=== PATIENT | female | born 1945 | race African-American/Black ===

== ENCOUNTER 2018-07-03 21:22 | Emergency (ER) | payer MEDICARE, BC ==
[~2018-07-03] VITALS: Ht 165.1 cm; Wt 104.8 kg
[~2018-07-03 21:22] MED LIST: AMLODIPINE BESY10 MG PO; ASPIRIN81 MG PO; CALCIUM 600 MG1 EAC2 PO; CARDURA8 MG PO; COUMADIN10 MG PO; DOXAZOSIN MESYLA8 MG PO; FUROSEMIDE40 MG PO; HYDRALAZINE HC100 MG PO; ISOSORBIDE MONO30 MG PO; LEVOTHYROXINE137 MCG PO; METOPROLOL SUCC50 MG PO; OMEGA 3 FISH O1 EACH PO; OS-CAL 500+D T1 EACH PO; Z FISH OIL PO; Z LEVOTHROID PO; Z.0.CARDURA8 MG PO; Z.0.HYDRALAZINE HC10 PO; Z.0.LASIX40 MG PO; Z.0.TOPROL XL100 MG PO
[2018-07-03] MEDS ORDERED: LIDOCAINE HCL 1% LOCAL INJ 20 ML VIAL INJ ONE (22:15)
[2018-07-03] MEDS ORDERED: BUPIVACAINE HCL 0.25% 10ML MPF VIAL INJ ONE (22:45)
[2018-07-04 00:06] VITALS: BP 140/76
== END 2018-07-04 00:23 | disposition home or self-care (01) ==
LOC: ER 21:22
DX: S61.011A Laceration without foreign body of right thumb without damage to nail, initial encounter (principal); W26.8XXA Contact with other sharp object(s), not elsewhere classified, initial encounter; Y92.008 Other place in unspecified non-institutional (private) residence as the place of occurrence of the external cause; I10 Essential (primary) hypertension; I50.9 Heart failure, unspecified; N18.9 Chronic kidney disease, unspecified; I25.10 Atherosclerotic heart disease of native coronary artery without angina pectoris; Z86.711 Personal history of pulmonary embolism
CPT/HCPCS: 99283

== ENCOUNTER 2020-01-26 22:47 | Inpatient (IN) | payer MEDICARE, BC, OTHER ==
[~2020-01-26] VITALS: Ht 162.6 cm; Wt 110.7 kg
--- NOTE | 2020-01-26 23:05 | NUR ---
PT IN ER RM 9 AT THIS TIME. PT PLACED ON BEDSIDE DRY CELL SEALER. NO ACUTE DISTRESS NOTED AT THIS TIME. BED IS LOCKED AND IN LOWEST POSITION. HEAD OF THE BED IS ELEVATED AND GIVEN A BLANKET. X1 SIDE RAIL IS UP. CALL LIGHT IS IN REACH IF IN NEED FOR ASSISTANCE.
[2020-01-26 23:07] LABS: BASOPHILS # (AUTO) 0.1 (0.0-0.1); EOSINOPHILS # (AUTO) 0.3 (0.0-0.4); EOSINOPHILS % 6.3 % (0.0-6.0); HEMATOCRIT 44.7 % (34.2-44.1); HEMOGLOBIN 14.1 g/dL (12.0-16.0); LYMPHOCYTES # (AUTO) 1.1 (1.0-3.2); LYMPHOCYTES % 21.4 % (18.0-39.1); MEAN CORPUSCULAR HEMOGLOBIN 26.9 pg (28-32); MEAN CORPUSCULAR HGB CONC 31.5 g/dL (31-35); MEAN CORPUSCULAR VOLUME 85.3 fL (81-99); MONOCYTES # (AUTO) 0.7 (0.2-0.8); MONOCYTES % 14.5 % (4.4-11.3); NEUTROPHILS # (AUTO) 2.9 (2.1-6.9); NEUTROPHILS % 56.6 % (38.7-80.0); PLATELET COUNT 270 x10e3/uL (140-360); RED BLOOD COUNT 5.24 x10e6/uL (3.6-5.1); RED CELL DISTRIBUTION WIDTH 13.7 % (11.7-14.4)
--- NOTE | 2020-01-26 23:45 | Diagnostic Imaging Report ---
Examination: Single AP view of the chest. COMPARISON: None available in PACS at this time. INDICATION: Cough. Shortness of breath. DISCUSSION: Lines/tubes: None. Lungs: Mild bilateral pulmonary venous congestion. Bibasilar subsegmental atelectasis with mild elevation of the right hemidiaphragm. Pleura: There is no pleural effusion or pneumothorax. Heart and mediastinum: The cardiac silhouette is mildly enlarged. Thoracic aorta is tortuous and unfolded. Bones and soft tissues: No acute bony abnormalities. Degenerative changes in the thoracic spine. IMPRESSION: 1. Mild bilateral pulmonary venous congestion. Signed by: Dr. Merry Stephen M.D. on 01/26/2020 11:42 PM
[2020-01-26 23:46] LABS: ALBUMIN 3.8 g/dL (3.5-5.0); ALBUMIN/GLOBULIN RATIO 0.9 (0.8-2.0); ANION GAP 11.6 mmol/L (8-16); CREATININE, SERUM 2.54 mg/dL (0.57-1.11); POTASSIUM 3.6 mmol/L (3.5-5.1)
[2020-01-26 23:52] LABS: CREATINE KINASE MB 6.7 ng/mL (0-5.0)
[2020-01-27] VITALS (9 sets, daily range): BP systolic 126–167; BP diastolic 72–100
[2020-01-27] MEDS ORDERED: HYDRALAZINE HCL 20 MG/ML VIAL IV ONE
--- NOTE | 2020-01-27 00:02 | NUR ---
ADORE ARTEAGA NOTIFIED AND AWARE OF CRITICAL LAB VALUE, CALCIUM 15.8.
[2020-01-27 00:03] LABS: CALCIUM 15.8 mg/dL (8.4-10.2)
--- NOTE | 2020-01-27 00:14 | Diagnostic Imaging Report ---
CT BRAIN WO HISTORY: Headache COMPARISON: None. Technique: Noncontrast axial scans were obtained from skull base to the vertex. Coronal and sagittal reconstructions obtained from the axial data. One or more of the following dose reduction techniques were used: Automated exposure control, adjustment of the mA and/or kV according to patient size, and/or utilization of iterative reconstruction technique. DISCUSSION: Scalp/Skull: Unremarkable. Brain sulci: Mildly prominent. Ventricles: Compensatory dilatation. Extra-axial spaces: A few subcentimeter nodular fat deposits (or lipomas) along the upper falx due to not exert significant mass effect. Otherwise, no masses or fluid collections. Parenchyma: Mild bilateral deep white matter hypodensity is likely chronic microvascular ischemic change. Otherwise, no masses, hemorrhage, or large vascular territory acute infarct. Dural sinuses: No abnormal densities. Sellar/Suprasellar region: Intact. Skull base: Intact. Incidental findings: Mild right frontonasal recess and right ethmoid air cell mucosal thickening. Bilateral ocular lens replacement. IMPRESSION: 1. No acute intracranial abnormalities. 2. Mild supratentorial chronic microvascular ischemic change. Mild generalized cerebral volume loss. Signed by: Dr. Dereck Noe M.D. on 01/27/2020 12:10 AM
[2020-01-27] MEDS ORDERED: ASPIRIN 81 MG CHEW TAB PO ONE (00:30)
--- OUTSIDE RECORDS SUMMARY | 2020-01-27 00:32 | XMS REPORT ---
Author Author [facility] Address Unknown Phone Unavailable Care Team Providers Care Vice President Financial Name Role Phone RICHARD LONNY Unavailable Unavailable Problems This patient has no known problems. Allergies, Adverse Reactions, Alerts This patient has no known allergies or adverse reactions. Medications This patient has no known medications. Results Test Description Test Time Test Comments Text Results Atomic Results Result Comments CT BRAIN WO 2020-01-27 00:06:00 [place] [address] Patient Name: ANAMIKA MCNEILL MR #: [id number] : 1945 Age/Sex: 74/F Req #: [id number] Adm Physician: Ordered by: LONNY RAMOS DO Report #: [id number] Location: ER Room/Bed: Procedure: [id number] CT/CT BRAIN WO Exam Date: Exam Time: REPORT STATUS: Signed CT BRAIN WO HISTORY: Headache COMPARISON: None. Technique: Noncontrast axial scans were obtained from skull base to the vertex. Coronal and sagittal reconstructions obtained from the axial data. One or more of the following dose reduction techniques were used: Automated exposure control, adjustment of the mA and/or kV according to patient size, and/or utilization of iterative reconstruction technique. DISCUSSION: Scalp/Skull: Unremarkable. Brain sulci: Mildly prominent. Ventricles: Compensatory dilatation. Extra-axial spaces: A few subcentimeter nodular fat deposits (or lipomas) along the upper falx due to not exert significant mass effect. Otherwise, no masses or fluid collections. Parenchyma: Mild bilateral deep white matter hypodensity is likely chronic microvascular ischemic change. Otherwise, no masses, hemorrhage, or large vascular territory acute infarct. Dural sinuses: No abnormal densities. Sellar/Suprasellar region: Intact. Skull base: Intact. Incidental findings: Mild right frontonasal recess and right ethmoid air cell mucosal thickening. Bilateral ocular lens replacement. IMPRESSION: 1. No acute intracranial abnormalities. 2. Mild supratentorial chronic microvascular ischemic change. Mild generalized cerebral volume loss. Signed by: Dr. Dereck Noe M.D. on 01/27/2020 12:10 AM Dictated By: DERECK NOE MD Transcribed By: MELONY on 01/27/209 COPY TO: LONNY RAMOS DO CHEST SINGLE (PORTABLE) 2020-01-26 23:40:00 [place] [address] Patient Name: ANAMIKA MCNEILL MR #: [id number] : 1945 Age/Sex: 74/F Req #: [id number] Adm Physician: Ordered by: LONNY RAMOS DO Report #: [id number] Location: ER Room/Bed: Procedure: [id number] DX/CHEST SINGLE (PORTABLE) Exam Date: 01/26/20 Exam Time: 2329 REPORT STATUS: Signed Examination: Single AP view of the chest. COMPAR JUAN R: None available in PACS at this time. INDICATION: Cough. Shortness of breath. DISCUSSION: Lines/tubes: None. Lungs: Mild bilateral pulmonary venous congestion. Bibasilar subsegmental atelectasis with mild elevation of the right hemidiaphragm. Pleura: There is no pleural effusion or pneumothorax. Heart and mediastinum: The cardiac silhouette is mildly enlarged. Thoracic aorta is tortuous and unfolded. Bones and soft tissues: No acute bony abnormalities. Degenerative changes in the thoracic spine. IMPRESSION: 1. Mild bilateral pulmonary venous congestion. Signed by: Dr. Merry Guzman M.D. on 01/26/2020 11:42 PM Dictated By: BEATA GUZMAN MD, MD 41 Transcribed By: MELONY on 01/26/202341 COPY TO: LONNY RAMSO DO
--- NOTE | 2020-01-27 00:57 | NUR ---
Received patient from ER via stretcher. AAox3. Able yo make needs known. Lt Ac 20g intact. Patient c/o SOB. O2 Sats 94%. Patient assisted to bed. HOB elevated 45 degrees. Denies any pain/discomfort at this time. Call light in reach. Bed in low and locked postion. Orientated to room and call light. Will cont to monitor.
[2020-01-27] MEDS: SODIUM CHLORIDE 0.9% 1000ML 1,000 ML IV SCH ×4 (03:04→23:54)
[2020-01-27] MEDS: HYDRALAZINE HCL 20 MG/ML VIAL IV PRN (04:47)
--- NOTE | 2020-01-27 04:52 | NUR ---
Patient blood pressure 162/100. Apresoline 10mg 0.5ml given IV. Patient denies any c/o headache or SOB. Will cont to monitor.
--- NOTE | 2020-01-27 05:30 | NUR ---
Rechecked patient blood pressure after Apresoline IV. 135/83, 76.
[2020-01-27] MEDS ORDERED: CARVEDILOL12.5 MG PO (05:47)
[2020-01-27] MEDS ORDERED: AMLODIPINE BESY10 MG PO (05:47)
[2020-01-27] MEDS ORDERED: LOSARTAN POTAS100 MG PO (05:47)
[2020-01-27] MEDS ORDERED: HYDROCHLOROTHIA25 MG (05:47)
[2020-01-27 07:32] LABS: CREATINE KINASE MB 9.5 ng/mL (0-5.0)
[2020-01-27] MEDS ORDERED: FUROSEMIDE INJ 10 MG/ML 4 ML VIAL IV SCH (09:00)
[2020-01-27] MEDS: METOPROLOL TARTRATE 25 MG TAB PO SCH ×2 (11:00→17:32)
--- NOTE | 2020-01-27 11:15 | Consultation ---
DATE OF CONSULTATION: Cardiology Consultation REASON FOR CONSULTATION: Chest pain. HISTORY OF PRESENT ILLNESS: Ms. Storm is a 74-year-old female with a pertinent past medical history of chronic diastolic heart failure, chronic kidney disease, coronary artery disease, and high blood pressure. She reports that she came into the ER due to ongoing chest pain for the last week. She reports that the chest pains are substernal and at times are relieved after she has a bowel movement, however, it seems to be bothering her more consistently over the last week and for that reason, she came into the ER. She does report she has a loaders by the name of Dr. Santos, whom she saw about two months ago in November 2019 and had a Holter monitor for three days. The reason the Holter monitor was ordered is due to concerns of arrhythmia. She reports that after wearing it, she was told everything was well. She reports her last cardiac evaluation was many years ago in 2013 when she last had a stress test. She is unable to walk on a treadmill and she does endorse some shortness of breath with exertion. She denies chest pain at this minute, but reports it was there around 2 o'clock this morning. Denies fever, chills, abdominal discomfort, dysuria, edema, orthopnea, or PND. REVIEW OF SYSTEMS: Negative except as mentioned above. PAST MEDICAL HISTORY: As listed above. PAST SURGICAL HISTORY: Bunionectomy, tubal ligation, and thyroidectomy secondary to goiter. PHYSICAL EXAMINATION: VITAL SIGNS: Temperature 96.6, pulse 71, respiratory rate 18, blood pressure 138/88, and oxygen saturation 96% on 1 liter nasal cannula. GENERAL: Alert and oriented x3. Resting comfortably in bed. Does not appear to be in any acute distress. NECK: Supple. No JVD noted. LUNGS: Clear to auscultation throughout. No wheezing. No rhonchi or crackles. CARDIOVASCULAR: Irregular rate and rhythm, 2/6 diastolic murmur present. No gallops. ABDOMEN: Soft and nontender. Normoactive bowel sounds. EXTREMITIES: Lower extremity, 2+ pedal pulses. No edema. CARDIOVASCULAR MEDICATIONS: Lasix 40 mg every 12 hours IV. LABORATORY DATA: On admission, WBC 5.10, hemoglobin 14.1, hematocrit 44.7, and platelets 270. Sodium 141, potassium 3.6, BUN 25, creatinine 2.54, creatine kinase 249, CK-MB 9.50, and troponin 0.075. IMAGING: Chest x-ray on admission with mild pulmonary vascular congestion. CT scan of the brain with no acute intracranial abnormality. TELEMETRY: Sinus rhythm with first-degree AV block and occasional PACs. IMPRESSION: 1. Chronic kidney disease. 2. Atypical chest pain. 3. Constipation. 4. Diastolic heart failure. 5. Hypertension. RECOMMENDATIONS: Echocardiogram ordered to be obtained this morning. We will review recommendations and we will follow. Plan for ischemic evaluation will require Lexiscan stress test during admission. Continue to monitor cardiac enzymes at this time. Medications adjusted accordingly. Maintain on telemetry at all times. We will continue to monitor this patient very closely. We thank you for this consultation and allowing us to participate in this patient's care. Dictated by Lia Curran NP MD YANETH HaasV/MICHAEL /[id number]
[2020-01-27 15:12] LABS: CREATINE KINASE MB 10.9 ng/mL (0-5.0)
[2020-01-27] MEDS ORDERED: MELATONIN 5 MG TABLET PO PRN (18:45)
[2020-01-27] MEDS ORDERED: HYDROCODONE/APAP 5MG-325MG TAB PO PRN (18:45)
[2020-01-27 18:52] LABS: BASOPHILS % 0.8 % (0.0-1.0); EOSINOPHILS # (AUTO) 0.2 (0.0-0.4); EOSINOPHILS % 4.9 % (0.0-6.0); HEMATOCRIT 45.3 % (34.2-44.1); HEMOGLOBIN 14.4 g/dL (12.0-16.0); LYMPHOCYTES # (AUTO) 1.1 (1.0-3.2); LYMPHOCYTES % 22.5 % (18.0-39.1); MEAN CORPUSCULAR HGB CONC 31.8 g/dL (31-35); MONOCYTES # (AUTO) 0.7 (0.2-0.8); MONOCYTES % 14.4 % (4.4-11.3); NEUTROPHILS # (AUTO) 2.8 (2.1-6.9); NEUTROPHILS % 57.4 % (38.7-80.0); PLATELET COUNT 284 x10e3/uL (140-360); RED BLOOD COUNT 5.33 x10e6/uL (3.6-5.1); RED CELL DISTRIBUTION WIDTH 14.2 % (11.7-14.4)
[2020-01-27 19:13] LABS: ANION GAP 14.4 mmol/L (8-16); CREATININE, SERUM 2.44 mg/dL (0.57-1.11); POTASSIUM 3.4 mmol/L (3.5-5.1)
[2020-01-27 19:17] LABS: CALCIUM 14.6 mg/dL (8.4-10.2)
--- NOTE | 2020-01-27 19:32 | NUR ---
CALLED AND NOTIFIED DR. GOSS OF PATIENT'S CALCIUM LEVEL OF 14.6 AND POTASSIUM 3.4 STATES HE IS AWARE AND IN THE CHART NOW.
[2020-01-27] MEDS ORDERED: POTASSIUM CHLORIDE 20 MEQ TAB CR PO NR (19:45)
--- NOTE | 2020-01-27 20:57 | History and Physical ---
CHIEF COMPLAINT: Shortness of breath, generalized weakness, and fatigue. HISTORY OF PRESENT ILLNESS: This is a 74-year-old female with history of hypertension and hypothyroidism, presents to the ED with complaints underlying chest pain and shortness of breath. The patient reports that her blood pressure was very elevated at home as well and was recently changed her medications by her plan nurse. She also reports having some chest pressure substernally with no radiation. She reports that she has no associated nausea or vomiting. Recently had a cardiac stress test in [place] by Dr. Santos, but she does not know the results. She reports she saw him back in December 2019, reports everything was well with no issues. She currently denies any chest pain during my interview. While on admission, she was found to have an elevated calcium level greater than 15, in which she does take hydrochlorothiazide as well as calcium twice a day at home for unknown reasons. The patient is a very poor historian. The patient is seen and evaluated at bedside on the medical floor. She is currently doing well with no other issues at this time. REVIEW OF SYSTEMS: Pertinent positives: Chest pain, palpitations, and generalized weakness. The rest of 14-point review of systems are reviewed with the patient and are negative. ALLERGIES: IODINE CONTRAST AND IBUPROFEN. HOME MEDICATIONS: Amlodipine, Coreg, hydrochlorothiazide, losartan, calcium carbonate with vitamin D3, aspirin, and levothyroxine. PAST MEDICAL HISTORY: Hypothyroidism and hypertension, uncontrolled. PAST SURGICAL HISTORY: Reports none. FAMILY HISTORY: Hypertension and diabetes. SOCIAL HISTORY: No drugs, no alcohol, does not smoke. She has children. PHYSICAL EXAMINATION: VITAL SIGNS: Temperature is 97.2, pulse 65, respiratory rate is 20, blood pressure is 141/89, and pulse ox 97% on room air. GENERAL: In no acute distress. Alert and oriented x3. Cooperative on examination. HEENT: Head is normocephalic and atraumatic. Eyes; pupils are equal, round, and reactive to light bilaterally. Extraocular movements are intact bilaterally. Throat; no evidence of erythema or exudates in the posterior pharynx. Has poor dentition. NECK: Supple. Good range of motion. PULMONARY: Clear to auscultation bilaterally. No wheezing, rales, or rhonchi. No crackles appreciated. CARDIOVASCULAR: Positive S1 and S2. No murmurs, rubs, or gallops appreciated. ABDOMEN: Soft, nondistended, and nontender to palpation. Bowel sounds present. MUSCULOSKELETAL: Strength is 5/5 throughout. No evidence of any muscle deficits on examination. No weakness appreciated. NEUROLOGIC: Cranial nerves 2 through 12 grossly intact. No evidence of any neurological deficits on exam. SKIN: Intact. Warm to touch. Good cap refill. PSYCHIATRIC: Normal affect and mood. EXTREMITIES: No edema. Good range of motion. LABORATORY DATA: White count 4.9, hemoglobin 14, hematocrit 45, and platelets of 284. Chemistry; sodium 140, potassium 3.4, chloride 92, bicarb 37, anion gap of 14, BUN is 27, creatinine is 2.44, glucose is 121, calcium on admission 15.8 downtrended to 14.6. Her total bilirubin is 0.6, AST 31, ALT 24, and alk phos 63. CK down trending to , CK-MB was elevated at 7.9. Troponins are 0.078, 0.075 and 0.122. BNP 36, total protein 8.2, albumin 3.8. Microbiology none. IMAGING STUDIES: Chest x-ray with mild pulmonary bilateral venous congestion. CT of the brain, no acute intracranial abnormality. IMPRESSION: 1. Chest pain, likely atypical in nature. 2. Acute kidney injury, likely secondary to dehydration. 3. Hypercalcemia, presumed to be multifactorial from vitamin D and calcium supplements, hydrochlorothiazide as well as dehydration. 4. Hypothyroidism. 5. Electrolyte abnormalities. PLAN: At this time her cardiac enzymes are negative. We will trend the troponins. Cardiology was consulted. Scheduled for cardiac stress testing. Replace potassium. As for calcium, it seems to be multifactorial, it is all likely secondary to home calcium and vitamin D including hydrochlorothiazide and dehydration. At this time, we will continue with IV fluid hydration at 125 mL/h of normal saline. Repeat labs in the morning. I did order intact PTH, ionized calcium, and chemistries as well to monitor this closely. In the event of her intact PTH level is high, I will go ahead and get a Sestamibi scan, but at this time we will continue to determine that once the further testing and lab results are present. We are going to resume same home medications except for the hydrochlorothiazide as well as her calcium and vitamin D. She also has underlying acute kidney injury it seems, but no chronic, I am not sure as the patient is very poor historian. We will continue to monitor renal function. Get a.m. labs. Discussed plan of care with the patient, nursing staff, and patient's son at bedside. MD MANAN Hart/MICHAEL /[id number]
[2020-01-28] VITALS (11 sets, daily range): BP systolic 142–163; BP diastolic 69–105
[2020-01-28 05:30] LABS: BASOPHILS % 0.7 % (0.0-1.0); EOSINOPHILS # (AUTO) 0.3 (0.0-0.4); EOSINOPHILS % 5.9 % (0.0-6.0); HEMATOCRIT 42.8 % (34.2-44.1); HEMOGLOBIN 13.3 g/dL (12.0-16.0); LYMPHOCYTES # (AUTO) 1.5 (1.0-3.2); LYMPHOCYTES % 26.1 % (18.0-39.1); MEAN CORPUSCULAR HEMOGLOBIN 26.8 pg (28-32); MEAN CORPUSCULAR HGB CONC 31.1 g/dL (31-35); MEAN CORPUSCULAR VOLUME 86.3 fL (81-99); MONOCYTES # (AUTO) 0.9 (0.2-0.8); MONOCYTES % 16.4 % (4.4-11.3); NEUTROPHILS # (AUTO) 2.8 (2.1-6.9); NEUTROPHILS % 50.7 % (38.7-80.0); PLATELET COUNT 256 x10e3/uL (140-360); RED BLOOD COUNT 4.96 x10e6/uL (3.6-5.1); RED CELL DISTRIBUTION WIDTH 14.3 % (11.7-14.4)
[2020-01-28 05:42] LABS: ALBUMIN 3.5 g/dL (3.5-5.0); ALBUMIN/GLOBULIN RATIO 0.9 (0.8-2.0); ANION GAP 11.7 mmol/L (8-16); CREATININE, SERUM 2.33 mg/dL (0.57-1.11); POTASSIUM 3.7 mmol/L (3.5-5.1)
[2020-01-28 05:47] LABS: CALCIUM 13.4 mg/dL (8.4-10.2)
[2020-01-28] MEDS: LEVOTHYROXINE SODIUM 112 MCG TAB PO SCH (06:43)
[2020-01-28] MEDS: ASPIRIN 81 MG CHEW TAB PO SCH (08:22)
[2020-01-28] MEDS: METOPROLOL TARTRATE 25 MG TAB PO SCH ×2 (08:22→17:57)
[2020-01-28] MEDS ORDERED: ASPIRIN 325 MG TAB PO SCH (09:00)
--- NOTE | 2020-01-28 10:20 | NUR ---
Pt unavailable at this time. EVS cleaning pt's room. I will follow up as able. IDALIA MORRISON [employer] Specialist Spiritual Care Department O: [phone]
--- NOTE | 2020-01-28 11:00 | NUR ---
MARCELA CANCELLED DUE TO PT HAVING ONE IN [place]
--- NOTE | 2020-01-28 12:11 | NUR ---
FROM DR TSANG STANDPOINT PT CAN BE DC.
--- NOTE | 2020-01-28 12:23 | NUR ---
discontinuing PT services since patient is Mod I in functional mobility.Thank you Addendum: 01/28/20 at 1223 by Jayme perea PT Amended: Links added.
[2020-01-28] MEDS: SODIUM CHLORIDE 0.9% 1000ML 1,000 ML IV SCH ×2 (12:25→20:41)
--- NOTE | 2020-01-28 12:25 | NUR ---
DR GOSS IS HERE AND PT WILL CONTINUE ON THE IV FLUIDS AT 125 TO GET THE CALCIUM LEVEL DOWN
--- NOTE | 2020-01-28 12:40 | Progress Note ---
DATE: Cardiology Progress Note SUBJECTIVE: The patient feels better. Denies any chest pain or shortness of breath. OBJECTIVE: VITAL SIGNS: Temperature is 98, heart rate 60, respirations are 20, blood pressure is 155/69, and oxygen saturation is 95% on room air. GENERAL: Well appearing, in no apparent distress. CARDIOVASCULAR: Regular rate and rhythm. LUNGS: Clear to auscultation. ABDOMEN: Soft, nontender, and nondistended. EXTREMITIES: No clubbing, cyanosis, or edema. NEUROLOGIC: No focal deficits noted. MEDICATIONS: Reviewed. LABORATORY DATA: Reviewed. Creatinine is 2.3. Calcium is 13.4. Telemetry monitoring revealed normal sinus rhythm. Stress test in October of 2019, shows normal myocardial perfusion. IMPRESSION: 1. Chronic kidney disease. 2. Atypical chest pain. 3. Constipation. 4. Diastolic heart failure. 5. Hypertension. RECOMMENDATIONS: Her echocardiogram showed normal left ventricular systolic function. The patient follows with a nursing program coordinator, Dr. Santso, who performed echocardiogram and nuclear stress test in October 2019, which were within normal limits. Titrate antihypertensives. The patient may be discharged from a cardiovascular standpoint with outpatient followup with her primary nursing program coordinator. DO GENARO Contreras/MICHAEL /[id number]
--- NOTE | 2020-01-28 13:25 | NUR ---
INPT ORDERS IMM EXPLAINED TO PT, SIGNED BY PT AND PLACED ON CHART COPY OF IMM GIVEN TO PT IN CARE TRANSITIONS FOLDER
--- NOTE | 2020-01-28 15:05 | Progress Note ---
DATE: 01/28/2020 Medicine Progress Note SUBJECTIVE: The patient is doing well today with no complaints. I did review the patient's 2D echo. Cardiac stress testing performed in November of 2019, found to be normal. Cardiology reviewed and stated that no further workup is needed. PHYSICAL EXAMINATION: VITAL SIGNS: Temperature is 98, pulse is 60, respiratory rate is 20, blood pressure 155/69, and pulse ox 95% on room air. GENERAL: No acute distress. Alert and oriented x3. Cooperative on examination. HEENT: Head, normocephalic and atraumatic. Eyes, pupils are equal, round, and reactive to light bilaterally. Extraocular movements are intact bilaterally. NECK: Supple. Good range of motion throughout. Throat, no evidence of erythema or exudates in the posterior pharynx. Has poor dentition. PULMONARY: Clear to auscultation bilaterally. No wheezing, rales, or rhonchi. No crackles appreciated. CARDIOVASCULAR: Positive S1 and S2. No murmurs, rubs, or gallops appreciated. ABDOMEN: Soft, nondistended, and nontender to palpation. Bowel sounds present. MUSCULOSKELETAL: Strength is 5/5 throughout. No evidence of any muscle deficits on examination. No weakness appreciated. NEUROLOGIC: Cranial nerves II through XII grossly intact. No evidence of any neurological deficits on exam. SKIN: Intact. Warm to touch. Good cap refill. PSYCHIATRIC: Normal affect and mood. EXTREMITIES: No edema. Good range of motion throughout. LABORATORY DATA: Show white count 5.5, hemoglobin 13, hematocrit 43, and platelets of 256. Chemistry; sodium 140, potassium 3.7, chloride 96, bicarb 36, anion gap of 11, BUN is 27, creatinine is 2.33 downtrending, calcium is 13.4, ionized calcium was 1.7 elevated. Vitamin D level, intact PTH still pending. IMAGING STUDIES: Nothing new. IMPRESSION: 1. Chest pain, likely atypical in nature-normal cardiac stress testing and 2D echo in November 2019 by her outpatient maxillofacial surgeon. No further workup needed. 2. Acute kidney injury secondary to dehydration. 3. Hypercalcemia, multifactorial from vitamin D and calcium supplements, hydrochlorothiazide and dehydration. 4. Hypothyroidism. 5. Electrolyte abnormalities. PLAN: At this time, no further cardiac workup needed with normal stress testing and 2D echo. Cardiology is following. Her renal function is improving with IV fluid hydration as well as her calcium. Continue with aggressive IV fluid hydration for now. Still pending several lab tests, vitamin D level as well as intact PTH levels. Get a.m. labs. MD MANAN Hart/MODDebbie /[id number]
--- NOTE | 2020-01-28 16:40 | NUR ---
pt resting quietly no signs of discomfort.
--- NOTE | 2020-01-28 19:00 | NUR ---
RECEIVED PATIENT IN BEDSIDE SHIFT REPORT. PATIENT A&OX3. NO PAIN REPORTED. NO S&S OF DISTRESS NOTED. IV TO L AC 20G RUNNING NS @ 125ML/HR, ASYMPTOMATIC, INTACT, AND PATENT. BED LOCKED IN LOWEST POSITION, SIDE RAILS UPX2, CALL LIGHT IN REACH.
[2020-01-29] VITALS (7 sets, daily range): BP systolic 143–174; BP diastolic 79–104
[2020-01-29 05:08] LABS: BASOPHILS % 0.7 % (0.0-1.0); EOSINOPHILS # (AUTO) 0.3 (0.0-0.4); EOSINOPHILS % 5.2 % (0.0-6.0); HEMATOCRIT 39.8 % (34.2-44.1); HEMOGLOBIN 12.2 g/dL (12.0-16.0); LYMPHOCYTES # (AUTO) 1.1 (1.0-3.2); LYMPHOCYTES % 18.3 % (18.0-39.1); MEAN CORPUSCULAR HEMOGLOBIN 26.8 pg (28-32); MEAN CORPUSCULAR HGB CONC 30.7 g/dL (31-35); MEAN CORPUSCULAR VOLUME 87.5 fL (81-99); MONOCYTES # (AUTO) 0.8 (0.2-0.8); MONOCYTES % 13.8 % (4.4-11.3); NEUTROPHILS # (AUTO) 3.7 (2.1-6.9); NEUTROPHILS % 61.8 % (38.7-80.0); PLATELET COUNT 230 x10e3/uL (140-360); RED BLOOD COUNT 4.55 x10e6/uL (3.6-5.1); RED CELL DISTRIBUTION WIDTH 14.1 % (11.7-14.4)
[2020-01-29 05:23] LABS: ANION GAP 10.6 mmol/L (8-16); CALCIUM 11.9 mg/dL (8.4-10.2); CREATININE, SERUM 2.08 mg/dL (0.57-1.11); POTASSIUM 3.6 mmol/L (3.5-5.1)
[2020-01-29] MEDS: SODIUM CHLORIDE 0.9% 1000ML 1,000 ML IV SCH ×2 (05:38→16:17)
[2020-01-29] MEDS: LEVOTHYROXINE SODIUM 112 MCG TAB PO SCH (05:55)
[2020-01-29] MEDS: ASPIRIN 81 MG CHEW TAB PO SCH (08:54)
[2020-01-29] MEDS: METOPROLOL TARTRATE 25 MG TAB PO SCH ×2 (08:56→16:32)
--- NOTE | 2020-01-29 11:49 | Progress Note ---
DATE: 01/29/2020 Medicine Progress Note SUBJECTIVE: The patient reports doing much better today with no complaints. No overnight events. PHYSICAL EXAMINATION: VITAL SIGNS: Temperature is 97.4, pulse 56, respiratory rate is 20, blood pressure 159/88, pulse ox 99% on room air. LABORATORY FINDINGS: Show white count 5.9, hemoglobin 12, hematocrit 39, platelets of 230. Chemistry; sodium 141, potassium 3.6, chloride 101, bicarb 33, anion gap of 10, BUN is 26, creatinine is 2.08, glucose 114. Calcium improved to 11.9, down from 13.4. Parathyroid hormone was less than 10. IMAGING STUDIES: Nothing new. GENERAL: No acute distress. Alert, oriented x3. Cooperative on examination. HEENT: Head; normocephalic, atraumatic. Eyes; pupils are equal, round, and reactive to light bilaterally. Extraocular movements are intact bilaterally. Throat; no erythema or exudates in the posterior pharynx, has poor dentition. NECK: Supple. Good range of motion. PULMONARY: Clear to auscultation bilaterally. No wheezing, rales, or rhonchi. No crackles appreciated. CARDIOVASCULAR: Positive S1 and S2. No murmurs, rubs, or gallops. GI: Abdomen is soft, nondistended, and nontender to palpation. Bowel sounds present. MUSCULOSKELETAL: Strength is 5/5 throughout. No evidence of any muscle deficits on examination. No weakness appreciated. NEUROLOGIC: Cranial nerves II through XII grossly intact. No evidence of any neurological deficits on exam. SKIN: Intact. Warm to touch. Good cap refill. PSYCHIATRIC: Normal affect and mood. EXTREMITIES: No edema. Good range of motion throughout. IMPRESSION: 1. Chest pain, likely atypical in nature-had normal cardiac stress testing and 2D echo back in November 2019, by her outpatient particleboard factory worker. No further workup is needed. Our particleboard factory worker was consulted, recommended no further treatment. 2. Acute kidney injury secondary to dehydration. 3. Hypercalcemia, multifactorial from vitamin D and calcium supplements, including hydrochlorothiazide and dehydration. 4. Hypothyroidism. 5. Electrolyte abnormalities. PLAN: At this time, no further cardiac workup was needed. Cardiology was following. As for her calcium, we will continue with aggressive IV fluid hydration. Her calcium is down trending appropriately. Intact PTH, was less than 10, which is an appropriate response to hypercalcemia. Repeat labs in the morning. If her calcium downtrends and improves and possibly if the serum calcium is approximately in the 10s, tomorrow she can be discharged to home holding her hydrochlorothiazide and her vitamin D and calcium supplements and needs close followup with her PCP. MD MANAN Hart/MICHAEL /[id number]
--- NOTE | 2020-01-29 18:47 | NUR ---
Patient left AC IV infiltrated. Patient IV removed and covered with a dressing. Patient has a new 20g IV placed into the R hand. Will continue to monitor.
--- NOTE | 2020-01-29 19:00 | NUR ---
RECEIVED PATIENT IN BEDSIDE SHIFT REPORT. PATIENT RESTING IN BED AT THIS TIME, A&OX3. NO PAIN REPORTED. NO S&S OF DISTRESS NOTED. IV RUNNING NS @125ML/HR. O2 @2L PER PATIENT REQUEST D/T INTERMITTENT SOB. BED LOCKED IN LOWEST POSITION, SIDE RAILS UPX2, CALL LIGHT IN REACH.
[2020-01-29] MEDS: HYDRALAZINE HCL 20 MG/ML VIAL IV PRN (21:00)
[2020-01-30] VITALS (9 sets, daily range): BP systolic 155–176; BP diastolic 86–104
[2020-01-30 05:29] LABS: BASOPHILS # (AUTO) 0.1 (0.0-0.1); BASOPHILS % 0.8 % (0.0-1.0); EOSINOPHILS # (AUTO) 0.3 (0.0-0.4); EOSINOPHILS % 5.1 % (0.0-6.0); HEMATOCRIT 39.6 % (34.2-44.1); LYMPHOCYTES # (AUTO) 1.4 (1.0-3.2); LYMPHOCYTES % 22.5 % (18.0-39.1); MEAN CORPUSCULAR HEMOGLOBIN 26.6 pg (28-32); MEAN CORPUSCULAR HGB CONC 30.3 g/dL (31-35); MEAN CORPUSCULAR VOLUME 87.8 fL (81-99); MONOCYTES # (AUTO) 0.8 (0.2-0.8); MONOCYTES % 12.3 % (4.4-11.3); NEUTROPHILS # (AUTO) 3.6 (2.1-6.9); PLATELET COUNT 239 x10e3/uL (140-360); RED BLOOD COUNT 4.51 x10e6/uL (3.6-5.1); RED CELL DISTRIBUTION WIDTH 14.1 % (11.7-14.4)
[2020-01-30 05:55] LABS: CALCIUM 11.2 mg/dL (8.4-10.2); CREATININE, SERUM 1.73 mg/dL (0.57-1.11)
[2020-01-30] MEDS: LEVOTHYROXINE SODIUM 112 MCG TAB PO SCH (06:14)
[2020-01-30] MEDS: SODIUM CHLORIDE 0.9% 1000ML 1,000 ML IV SCH ×2 (06:14→08:16)
--- NOTE | 2020-01-30 07:00 | NUR ---
RECEIVED PATIENT RESTING IN BED NO S/S OF DISTRESS. BED LOW, WHEELS LOCKED, SIDE RAILS X2. CALL LIGHT IN REACH WILL CONTINUE TO MONITOR PATIENT.
[2020-01-30] MEDS: ASPIRIN 81 MG CHEW TAB PO SCH (08:40)
[2020-01-30] MEDS: METOPROLOL TARTRATE 25 MG TAB PO SCH ×2 (08:40→17:00)
--- NOTE | 2020-01-30 13:29 | Progress Note ---
DATE: 01/30/2020 Medicine Progress Note SUBJECTIVE: The patient reports being a little short of breath. I will stop IV fluids, give her some Lasix. Calcium is still 11.2. No other complaints. No overnight events. OBJECTIVE: VITAL SIGNS: Temperature is 98, pulse 80, respiratory rate is 18, blood pressure recorded at 173/97, pulse ox 96% on 2 L nasal cannula. GENERAL: No acute distress. Alert and oriented x3. Cooperative on examination. HEENT: Head; normocephalic, atraumatic. Eyes; pupils are equal, round, and reactive to light bilaterally. Extraocular movements are intact bilaterally. Throat; no erythema or exudates in the posterior pharynx, has poor dentition. NECK: Supple. Good range of motion. PULMONARY: Clear to auscultation bilaterally. No wheezing, rales, or rhonchi. No crackles appreciated. CARDIOVASCULAR: Positive S1, S2. No murmurs, rubs, or gallops. GI: Abdomen is soft, nondistended, and nontender to palpation. Bowel sounds present. MUSCULOSKELETAL: Strength is 5/5 throughout. No evidence of any muscle deficits on examination. No weakness appreciated. NEUROLOGIC: Cranial nerves II through XII grossly intact. No evidence of any neurological deficits on exam. SKIN: Intact. Warm to touch. Good cap refill. PSYCHIATRIC: Normal affect and mood. EXTREMITIES: No edema. Good range of motion throughout. LABORATORY FINDINGS: Show white count 6, hemoglobin 12, hematocrit 39.6, platelets about 239. Chemistry; sodium 144, potassium 4, chloride 104, bicarb 34, anion gap of 10, BUN is 22, creatinine is 1.73. Her calcium downtrended now to 11.2. IMPRESSION: 1. Chest pain, atypical in nature, had normal cardiac stress testing and 2D echo back in November 2019 by her outpatient electromedical equipment technician. Our electromedical equipment technician reports no further workup needed at this time. 2. Acute kidney injury secondary to dehydration - resolved. 3. Hypercalcemia, multifactorial from vitamin D, calcium supplements as well as hydrochlorothiazide, and dehydration. 4. Hypothyroidism. 5. Electrolyte abnormalities. PLAN: At this time, no further cardiac workup needed by Cardiology. I will go ahead and stop the IV fluids as she reports being short of breath. Get a stat chest x-ray. Lasix 40 mg IV x1. Repeat labs in the morning. Discussed plan of care with nursing staff. MD MANAN Hart/MICHAEL /[id number]
[2020-01-30] MEDS ORDERED: FUROSEMIDE INJ 10 MG/ML 4 ML VIAL IV ONE ×2 (13:45→19:00)
--- NOTE | 2020-01-30 13:59 | Diagnostic Imaging Report ---
Chest, 1 view, 01/30/2020. History: Shortness of breath. Comparison: 01/26/2020. Findings: There is poor inspiration. The cardiomediastinal silhouette and pulmonary vasculature are within normal limits for a portable exam. There is no focal consolidation or pleural effusion. There are no acute osseous or soft tissue abnormalities. Impression: No acute cardiopulmonary abnormality. Signed by: Dagoberto Huitron on 01/30/2020 1:56 PM
[2020-01-30] MEDS: HYDRALAZINE HCL 20 MG/ML VIAL IV PRN (15:34)
--- NOTE | 2020-01-30 21:27 | NUR ---
Pulmonary 142924 COVID (+) exposure Check COVID testing, follow clinically for evolving symptoms Thanks
--- NOTE | 2020-01-30 22:03 | Consultation ---
DATE OF CONSULTATION: 01/30/2020 Pulmonary Medicine Consult REASON FOR REFERRAL: Direct COVID contact. HISTORY: Ms. Storm is a pleasant 74-year-old female with contact with contagious virus. The patient admitted on January 28, 2020 with shortness of breath. The patient with additional generalized weakness. The patient was found to have multiple abnormalities, but importantly the patient reportedly had in December 2019 cardiac stress test, which she believes was unremarkable, but she is not sure. However, she then told grinder dresser that in 2013 was her last stress test, but she was unable to walk on treadmill at that time. While dealing with weakness, the patient encountered COVID positive contact. Of note, her admission chest x-ray with some right lower lobe atelectasis. Of note, the patient was beginning to develop a little bit more shortness of breath after initial improvement after day one. I am consulted. Currently, she is on 2 L/minute nasal cannula oxygen. She is still on IV fluids, but now only 50 mL/h that were placed due to hypercalcemia with level of 15.8 on admission. Her albumin in serum was 3.5, normal. Parathyroid hormone was low at 10 and TSH was normal. Creatinine is 2.54 on admit. I am consulted. The patient with no history of a home oxygen use. She is on no respiratory home medicines. PAST MEDICAL HISTORY: Hypothyroidism, hypertension, and obesity. MEDICATIONS: Medication list reviewed per the chart record, but include amlodipine, Coreg, hydrochlorothiazide, losartan, calcium carbonate with vitamin D, aspirin, and levothyroxine. SOCIAL HISTORY: No smoking. No drinking. No drugs. 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 FAMILY HISTORY: Noncontributory. REVIEW OF SYSTEMS: GENERAL: No weight loss. HEENT: No mouth ulcers. Ophthalmologic, no conjunctival ulcers. ENDOCRINE: No recent knowledge of any dysthymia. PULMONARY: No asthma. CARDIAC: No heart attack. GI: No constipation. : No blood in urine. PSYCHIATRIC: No depression. NEUROLOGIC: No seizures. OBJECTIVE: VITAL SIGNS: Afebrile, vital signs noted reviewed per the chart record. GENERAL: In no acute distress, alert and calm. HEENT: Normocephalic, atraumatic. NECK: Supple. Throat midline. LUNGS: Bilateral air entry, limited air entry, especially at bases, but clear. CARDIOVASCULAR: S1, S2. No murmurs, rubs, or gallops. ABDOMEN: Soft, nontender. EXTREMITIES: No clubbing. No cyanosis. There is no edema. INTEGUMENT: No rash. No purpura. LABORATORY DATA: 4.0 potassium, most recently, 22 BUN, and 1.7 creatinine. Calcium is come down to 11.2. IMPRESSION AND PLAN: 1. COVID direct contact and exposure, no definite symptomology. 2. Admit with critical hypercalcemia, improving. 3. Elevated creatinine, chronic kidney disease presumed, possible stage 3. Acute kidney injury superimposed. 4. Atelectasis. 5. Obesity, possible hypoventilation. 6. Possible fluid overload, BNP level 67. 7. Hypertension. 8. Hypothyroidism, chronic. Continue treatment for hypercalcemia per Renal specialist. Of note, any increased shortness of breath can be from mild fluid intake versus other causes. I recommend send COVID viral testing. We will follow clinically to see if the patient develops any upper or lower respiratory symptoms. We will follow along closely. Continue supplemental oxygen as needed and wean off. She will have her long-term lung expansion and strengthening are recommended for the patient. Thank you very much, Dr. Barrow, for this consult. Please call for questions. Paul Healy MD GMN/MODL /[id number]
--- NOTE | 2020-01-30 22:13 | NUR ---
NOTIFIED PT'S DAUGHTER, MICHAEL DUBON, OF PATIENTS STATUS AND NEW ROOM NUMBER. ALL QUESTIONS ANSWERED. NOTIFIED MICHAEL THAT PT DOES HAVE HER CELL PHONE AT BEDSIDE AND THAT IS BEST WAY TO REACH HER AT THIS TIME. NOTIFIED PT THAT THIS RN SPOKE TO HER DAUGHTER.
[2020-01-31] VITALS (9 sets, daily range): BP systolic 154–175; BP diastolic 80–94
[2020-01-31 05:33] LABS: BASOPHILS # (AUTO) 0.1 (0.0-0.1); BASOPHILS % 0.8 % (0.0-1.0); EOSINOPHILS # (AUTO) 0.3 (0.0-0.4); EOSINOPHILS % 4.5 % (0.0-6.0); HEMATOCRIT 42.1 % (34.2-44.1); HEMOGLOBIN 12.9 g/dL (12.0-16.0); LYMPHOCYTES # (AUTO) 1.3 (1.0-3.2); LYMPHOCYTES % 20.6 % (18.0-39.1); MEAN CORPUSCULAR HEMOGLOBIN 26.9 pg (28-32); MEAN CORPUSCULAR HGB CONC 30.6 g/dL (31-35); MEAN CORPUSCULAR VOLUME 87.9 fL (81-99); MONOCYTES # (AUTO) 0.8 (0.2-0.8); MONOCYTES % 12.1 % (4.4-11.3); NEUTROPHILS # (AUTO) 3.9 (2.1-6.9); NEUTROPHILS % 61.8 % (38.7-80.0); PLATELET COUNT 245 x10e3/uL (140-360); RED BLOOD COUNT 4.79 x10e6/uL (3.6-5.1); RED CELL DISTRIBUTION WIDTH 14.2 % (11.7-14.4)
[2020-01-31 05:45] LABS: ANION GAP 11.3 mmol/L (8-16); CALCIUM 11.9 mg/dL (8.4-10.2); CREATININE, SERUM 1.92 mg/dL (0.57-1.11); POTASSIUM 3.3 mmol/L (3.5-5.1)
[2020-01-31] MEDS: LEVOTHYROXINE SODIUM 112 MCG TAB PO SCH (07:13)
[2020-01-31] MEDS: METOPROLOL TARTRATE 25 MG TAB PO SCH ×2 (08:13→17:30)
[2020-01-31] MEDS: ASPIRIN 81 MG CHEW TAB PO SCH (08:13)
[2020-01-31] MEDS ORDERED: POTASSIUM CHLORIDE 20 MEQ TAB CR PO STA (13:17)
--- NOTE | 2020-01-31 13:29 | NUR ---
Pulmonary Medicine DATE 01/31/2020 SUBJECTIVE: RA FIO2 no respiratory distress no new cough no fevers REVIEW OF SYSTEMS: no chest pain, no headaches OBJECTIVE: VITAL SIGNS: vital signs noted reviewed per the chart record. GENERAL: NAD, alert and calm. HEENT: Normocephalic, atraumatic. NECK: Supple. Throat midline. LUNGS: Bilateral air entry, limited especially at bases, but clear. CARDIOVASCULAR: S1, S2. No murmurs, rubs, or gallops. ABDOMEN: Soft, nontender. EXTREMITIES: No clubbing. No cyanosis. no edema. INTEGUMENT: No rash. No purpura. LABORATORY DATA: wbc 6.2, hct 42, plt 245 k 3.3, cr 1.92. cho3 36 IMPRESSION AND PLAN: 1. COVID direct contact/exposure, asymptomatic? 2. Admit with critical hypercalcemia, improving. 3. chronic kidney disease presumed, possible stage 3. Acute kidney injury superimposed. 4. Atelectasis. 5. Obesity, possible hypoventilation. 6. Possible fluid overload, BNP level 67. 7. Hypertension. 8. Hypothyroidism, chronic. Continue treatment for hypercalcemia per Renal specialist. Follow up COVID viral testing. Follow for upper or lower respiratory symptoms. Long-term lung expansion and strengthening are recommended for the patient. Thank you very much, Dr. Barrow, for this consult. Please call for questions.
[2020-01-31] MEDS: SODIUM CHLORIDE 0.9% 1000ML 1,000 ML IV SCH (13:30)
--- NOTE | 2020-01-31 14:20 | Progress Note ---
DATE: 01/31/2020 Medicine Progress Note SUBJECTIVE: The patient is doing well. She was transferred yesterday from the regular floor to the isolation room for possible concerns for exposure to Coronavirus. She is currently being tested. We discussed this with the patient and her family. They verbalized understanding. PHYSICAL EXAMINATION: VITAL SIGNS: Temperature is 97.1, pulse 60, respiratory rate is 16, blood pressure 160/82, and pulse ox 97% on room air. GENERAL: Not in acute distress. Alert and oriented x3. Cooperative on examination. HEENT: Head; normocephalic, atraumatic. Eyes; pupils are equal, round, and reactive to light bilaterally. Extraocular movements intact bilaterally. Throat; no evidence of erythema or exudates in the posterior pharynx. Has poor dentition. NECK: Supple. Good range of motion. PULMONARY: Clear to auscultation bilaterally. No wheezing, no rales, no rhonchi, no crackles appreciated. CARDIOVASCULAR: Positive S1 and S2. No murmurs, rubs, or gallops appreciated. ABDOMEN: Soft, nondistended, and nontender to palpation. Bowel sounds present. MUSCULOSKELETAL: Strength is 5/5 throughout. No evidence of any muscle deficits on examination. No weakness appreciated. NEUROLOGIC: Cranial nerves 2 through 12 grossly intact. No evidence of any neurological deficits on exam. SKIN: Intact. Warm to touch. Good cap refill. PSYCHIATRIC: Normal affect and mood. EXTREMITIES: No edema. Good range of motion throughout. LABORATORY DATA: Show white count of 6.2, hemoglobin 12.9, hematocrit is 42, and platelets of 245. Chemistry; sodium 143, potassium 3.3, replaced, chloride 99, bicarb 36, anion gap of 11, BUN is 21, creatinine is 1.92, and calcium is 11.9 up trended. Vitamin D level is still pending. Coronavirus PCR pending. IMAGING STUDIES: Chest x-ray yesterday showed no acute cardiopulmonary abnormalities. IMPRESSION: 1. Chest pain, atypical in nature-normal cardiac stress testing and 2D echo back in November 2019 from her outpatient pin or clip fastener. Our pin or clip fastener here, no further workup needed. 2. Acute kidney injury secondary to dehydration. 3. Hypercalcemia, multifactorial from vitamin D, calcium supplements as well as hydrochlorothiazide, and dehydration. 4. Hypothyroidism. 5. Electrolyte abnormalities. 6. Concerns for Coronavirus exposure. PLAN: At this time, no further workup needed by Cardiology. The patient was transferred from the floor to the isolation for PCR Coronavirus testing. Pulmonary and ID are following. Her calcium is still elevated. We are going ahead and re-initiate the normal saline at 75 mL/h. Replace potassium. Get morning labs including ionized calcium. If her calcium is less than 11 tomorrow and she has been cleared by the consultants, she will be discharged to home with home isolation. Discussed with the patient plan of care and she verbalized understanding. MD MANAN Hart/LUKASZL /[id number]
[2020-01-31] MEDS: HYDRALAZINE HCL 25 MG TAB PO SCH (17:30)
--- NOTE | 2020-01-31 18:46 | Consultation ---
DATE OF CONSULTATION: REASON FOR CONSULTATION: Concerned about exposure to COVID-19. HISTORY OF PRESENT ILLNESS: This patient, who is a 74-year-old female. She originally comes in on January 26. The patient comes to the hospital with chest pain. She is very pleasant, 74-year-old female, who has history of hypertension, congestive heart failure, coronary artery disease, chronic kidney disease, and high blood pressure, comes in with chest pain. She was seen by Cardiology. She was weak and she has had physical therapy during her stay here. There is concerned if she may have exposed to COVID-19. I did see the patient. There is no shortness of breath. No cough. No sore throat. She said she is feeling really well. She wants to go home. REVIEW OF SYSTEMS: Otherwise unremarkable. PAST MEDICAL HISTORY: As above. PAST SURGICAL HISTORY: As above. ALLERGIES: NKA. SOCIAL HISTORY: There is no smoking, drug abuse, or alcohol abuse. FAMILY HISTORY: Otherwise unremarkable. PHYSICAL EXAMINATION: GENERAL: She is currently alert and oriented. Does not seem to be in acute distress. VITAL SIGNS: Stable, currently afebrile. HEENT: Not icteric. NECK: Supple. CHEST: Clear bilateral. COR: S1 and S2. No S3, S4, or murmur. ABDOMEN: Soft. Bowel sounds present. No tenderness. EXTREMITIES: No edema. SKIN: No rash. IMPRESSION: Exposure to COVID-19, very low risk. RECOMMEND: We tested the patient. Results are still pending, could be discharged home. Follow up with me in 2 weeks. If she has fever, shortness of breath, or chest pain to call me, to stay in home quarantine. I answered all their questions. Discussed all the possibilities with her. Time spent, one hour with the patient, reviewing all her record and all her options and reviewing her medical record. MD CONNIE Brady/MICHAEL /[id number]
[2020-02-01] VITALS (10 sets, daily range): BP systolic 139–169; BP diastolic 77–94
[2020-02-01] MEDS: SODIUM CHLORIDE 0.9% 1000ML 1,000 ML IV SCH ×3 (02:44→22:42)
[2020-02-01 04:43] LABS: BASOPHILS # (AUTO) 0.1 (0.0-0.1); BASOPHILS % 0.8 % (0.0-1.0); EOSINOPHILS # (AUTO) 0.3 (0.0-0.4); EOSINOPHILS % 5.4 % (0.0-6.0); HEMATOCRIT 40.4 % (34.2-44.1); HEMOGLOBIN 12.2 g/dL (12.0-16.0); LYMPHOCYTES # (AUTO) 1.5 (1.0-3.2); LYMPHOCYTES % 23.1 % (18.0-39.1); MEAN CORPUSCULAR HEMOGLOBIN 26.9 pg (28-32); MEAN CORPUSCULAR HGB CONC 30.2 g/dL (31-35); MEAN CORPUSCULAR VOLUME 89.2 fL (81-99); MONOCYTES # (AUTO) 0.9 (0.2-0.8); MONOCYTES % 13.5 % (4.4-11.3); NEUTROPHILS # (AUTO) 3.6 (2.1-6.9); PLATELET COUNT 245 x10e3/uL (140-360); RED BLOOD COUNT 4.53 x10e6/uL (3.6-5.1); RED CELL DISTRIBUTION WIDTH 14.3 % (11.7-14.4)
[2020-02-01 05:00] LABS: CALCIUM IONIZED 1.6 mmol/L (1.09-1.30)
[2020-02-01 05:14] LABS: ANION GAP 11.7 mmol/L (8-16); CALCIUM 11.7 mg/dL (8.4-10.2); POTASSIUM 3.7 mmol/L (3.5-5.1)
[2020-02-01 05:44] LABS: CREATININE, SERUM 1.95 mg/dL (0.57-1.11)
[2020-02-01] MEDS: LEVOTHYROXINE SODIUM 112 MCG TAB PO SCH (05:54)
[2020-02-01] MEDS: METOPROLOL TARTRATE 25 MG TAB PO SCH ×2 (10:57→18:20)
[2020-02-01] MEDS: HYDRALAZINE HCL 25 MG TAB PO SCH ×2 (10:57→18:20)
[2020-02-01] MEDS: ASPIRIN 81 MG CHEW TAB PO SCH (10:57)
[2020-02-01] MEDS ORDERED: PAMIDRONATE DISODIUM 30 MG/VIAL IV ONE (13:45)
--- NOTE | 2020-02-01 14:11 | NUR ---
Pulmonary Medicine DATE 01/31/2020 SUBJECTIVE:2 L/min oxygen by ROBERT NS at 75/hr ivf small cough, mildly different from her baseline no resp distress REVIEW OF SYSTEMS: no chest pain, no headaches OBJECTIVE: VITAL SIGNS: vital signs noted reviewed per the chart record. GENERAL: NAD, alert and calm. HEENT: Normocephalic, atraumatic. NECK: Supple. Throat midline. LUNGS: Bilateral air entry, limited especially at bases, but clear. CARDIOVASCULAR: S1, S2. No murmurs, rubs, or gallops. ABDOMEN: Soft, nontender. EXTREMITIES: No clubbing. No cyanosis. no edema. INTEGUMENT: No rash. No purpura. LABORATORY DATA: cr 1.96, k 3.7 IMPRESSION AND PLAN: 1. COVID direct contact/exposure, asymptomatic? 2. Admit with critical hypercalcemia, improving. 3. CKD presumed, possible stage 3. PADDY 4. Atelectasis. 5. Obesity, possible hypoventilation. 6. Possible fluid overload, BNP level 67. 7. Hypertension. 8. Hypothyroidism, chronic. Continue treatment for hypercalcemia per Renal specialist. Follow up COVID viral testing. Follow for upper or lower respiratory symptoms. Long-term lung expansion and strengthening are recommended for the patient. Thank you very much, Dr. Barrow, for this consult. Please call for questions.
[2020-02-01] MEDS ORDERED: FUROSEMIDE INJ 10 MG/ML 2 ML VIAL IV ONE (15:00)
[2020-02-01 15:20] LABS: FREE T4 (FREE THYROXINE) 0.97 ng/dL (0.8-1.8); THYROID STIMULATING HORMONE 1.909 uIU/mL (0.350-4.940)
--- NOTE | 2020-02-01 15:39 | Consultation ---
DATE OF CONSULTATION: 02/01/2020 Endocrine Consultation This is a patient of Dr. Barrow. Thank you very much for referring this patient. HISTORY OF PRESENT ILLNESS: This is a 74-year-old black female, who was referred to me for evaluation of hypercalcemia. The patient came to the hospital with history of shortness of breath. The patient also has history of hypothyroidism, acute on chronic renal failure and congestive cardiac failure. No history of kidney stones or osteoporosis in the past. The patient is on multiple medications at home including hydralazine, metoprolol, and levothyroxine 0.112 mg once daily. PHYSICAL EXAMINATION: GENERAL: Today, the patient is alert, awake, little bit apprehensive. She is moderately overweight. Heart rate is around 78, blood pressure is 136/86 mmHg. HEENT: Essentially unremarkable. Thyroid is palpable. Clinically, she is near euthyroid. CHEST: Bilateral vesicular breathing. She has good bilateral bronchospasm. CARDIOVASCULAR: First and second heart sounds. There is no 3rd or 4th heart sound. Ejection systolic murmur is grade 2/6. The patient has mild pedal edema. CLINICAL IMPRESSION: Hypercalcemia, rule out _Hyperparathyroidism, acute on chronic renal failure, congestive cardiac failure. PLAN: At this time is to do serum PTH, ionized calcium. Continue the normal saline, IV Lasix for now. Thanks again for referring this patient. I will be following this patient with you. MD WALLY Ernst/MICHAEL /[id number] CHAD
[2020-02-01] MEDS ORDERED: PAMIDRONATE DISODIUM 60 MG in SODIUM CHLORIDE 0.9% 500ML 500 ML IV ONE (16:00)
--- NOTE | 2020-02-01 16:09 | Progress Note ---
DATE: 02/01/2020 Medicine Progress Time SUBJECTIVE: The patient is doing well today with no complaints. Her calcium is still elevated. We will get Endocrinology, add pamidronate and get a hematology consult. LABORATORY FINDINGS: Show white count 6.2, hemoglobin 12, hematocrit 40, platelets of 245. Chemistry; sodium 143, potassium 3.7, chloride 101, bicarb 34, anion gap is 11, BUN is 25, creatinine is 1.95, calcium is 11.7, ionized calcium 1.6. Vitamin D levels are all pending. Coronavirus PCR is pending. IMAGING STUDIES: Nothing new. PHYSICAL EXAMINATION: VITAL SIGNS: Temperature 96.7, pulse 50, respiratory rate 17, blood pressure 142/90, pulse ox 99% on room air. GENERAL: Not in acute distress. Alert and oriented x3. Cooperative on examination. HEENT: Head; normocephalic, atraumatic. Eyes; pupils are equal, round, and reactive to light bilaterally. Extraocular movements intact bilaterally. Throat; no evidence of erythema or exudates in the posterior pharynx. Has poor dentition. NECK: Supple. Good range of motion. PULMONARY: Clear to auscultation bilaterally. No wheezing, no rales, no rhonchi, no crackles appreciated. CARDIOVASCULAR: Positive S1 and S2. No murmurs, rubs, or gallops appreciated. ABDOMEN: Soft, nondistended, and nontender to palpation. Bowel sounds present. MUSCULOSKELETAL: Strength is 5/5 throughout. No evidence of any muscle deficits on examination. No weakness appreciated. NEUROLOGIC: Cranial nerves 2 through 12 grossly intact. No evidence of any neurological deficits on exam. SKIN: Intact. Warm to touch. Good cap refill. PSYCHIATRIC: Normal affect and mood. EXTREMITIES: No edema. Good range of motion throughout. IMPRESSION: 1. Chest pain, atypical in nature with normal cardiac stress testing and 2D echo back in November 2019 - no further workup needed by Cardiology here. 2. Acute kidney injury secondary to dehydration. 3. Hypercalcemia, multifactorial from vitamin D, calcium supplements as well as hydrochlorothiazide, and dehydration. 4. Hypothyroidism. 5. Electrolyte abnormalities. 6. Concerns for Coronavirus exposure. PLAN: At this time, no further workup needed by Cardiology. She is on isolation for coronavirus PCR testing. As for her calcium, I will go ahead and add pamidronate 60 mg IV once as her calcium level is too high, get Endocrinology, Hematology consultation. Get a UPEP, SPEP and free kappa lambda chain despite her hemoglobin is stable. We will await for this consultants to make further recommendations and management. Continue with IV fluids. Avoid calcium supplements. Otherwise, Lovenox for DVT prophylaxis. MD MANAN Hart/MICHAEL /[id number]
--- NOTE | 2020-02-01 16:48 | NUR ---
spoke with Dr. Barrow and informed him pt is COVID negative; he states from his standpoint, discontinue isolation and move pt to the floor. wants to check with Dr. Romero (ID) prior to moving pt.
--- NOTE | 2020-02-01 16:53 | NUR ---
paged Dr. Dupont regarding new consult.
[2020-02-01 17:48] LABS: CREATININE,URINE RANDOM 132.76 mg/dL (47-110); TOTAL PROTEIN, URINE 33.2 mg/dL (1-14)
--- NOTE | 2020-02-01 18:17 | NUR ---
spoke with Dr vidales re: isolation removal and transfer to floor, ok to remove isolation and transfer to floor. powerhouse oiler notified
[2020-02-01] MEDS: ENOXAPARIN 30 MG/0.3 ML SYR SC SCH (18:20)
--- NOTE | 2020-02-01 22:19 | NUR ---
reports given to Jd CENTENO, patient moved to rm 29, belongings with her,transferred with wheelchair. she is awake alert oriented.
[2020-02-02] VITALS (8 sets, daily range): BP systolic 139–169; BP diastolic 74–86
[2020-02-02] MEDS: LEVOTHYROXINE SODIUM 112 MCG TAB PO SCH (05:35)
[2020-02-02 06:40] LABS: ANION GAP 10.6 mmol/L (8-16); CREATININE, SERUM 1.67 mg/dL (0.57-1.11); POTASSIUM 3.6 mmol/L (3.5-5.1)
[2020-02-02] MEDS: ASPIRIN 81 MG CHEW TAB PO SCH (09:56)
[2020-02-02] MEDS: HYDRALAZINE HCL 25 MG TAB PO SCH ×2 (09:56→17:04)
[2020-02-02] MEDS: METOPROLOL TARTRATE 25 MG TAB PO SCH ×2 (09:57→17:04)
--- NOTE | 2020-02-02 14:53 | NUR ---
Nutrition LOS Note RD Recommendation for Physician: - Continue diet as ordered Plan of Care: RD following, monitoring for tolerance and adequacy Nutrition reason for involvement: LOS Primary Diagnose(s): Hypercalcemia, chest pain, PADDY PMH: Hypothyroidism and hypertension, uncontrolled. Ht: 64in Wt: 244lb BMI: 41.9kg/m2 IBW: 120lb +/- 10% RD Assessment: (02/01) Chart reviewed. Labs and meds reviewed. 74yo F, who was admitted for chest pain. Day 6 in the hospital. Visited pt in the room. Pt reported improvement in her appetite since admission. Recorded PO ~75%. No GI complains noted. Pt denied any chewing or swallowing difficulty. LBM 02/01. Weight has been stable. Will continue to monitor and follow. Current Diet: Cardiac diet Malnutrition Evaluation (02/01) The patient does not meet criteria for a specified degree of malnutrition at this time. Will re-evaluate at follow-up as appropriate. Diet Education Needs Assessment: Diet education not indicated. Nutrition Care Level: low Signed: Lena Bhatti, , RD, LD
--- NOTE | 2020-02-02 15:22 | Progress Note ---
DATE: 02/02/2020 Medicine Progress Note SUBJECTIVE: The patient is doing well today with no complaints. PHYSICAL EXAMINATION: VITAL SIGNS: Temperature is 97.6, pulse 60, respiratory rate is 20, blood pressure 139/74, and pulse ox 99% on room air. GENERAL: Not in acute distress. Alert and oriented x3. Cooperative on examination. HEENT: Head; normocephalic, atraumatic. Eyes; pupils are equal, round, and reactive to light bilaterally. Extraocular movements intact bilaterally. Throat; no evidence of erythema or exudates in the posterior pharynx. Has poor dentition. NECK: Supple. Good range of motion. PULMONARY: Clear to auscultation bilaterally. No wheezing, no rales, no rhonchi, no crackles appreciated. CARDIOVASCULAR: Positive S1 and S2. No murmurs, rubs, or gallops appreciated. ABDOMEN: Soft, nondistended, and nontender to palpation. Bowel sounds present. MUSCULOSKELETAL: Strength is 5/5 throughout. No evidence of any muscle deficits on examination. No weakness appreciated. NEUROLOGIC: Cranial nerves 2 through 12 grossly intact. No evidence of any neurological deficits on exam. SKIN: Intact. Warm to touch. Good cap refill. PSYCHIATRIC: Normal affect and mood. EXTREMITIES: No edema. Good range of motion throughout. LABORATORY FINDINGS: Show white count 6.2, hemoglobin 12, hematocrit is 40, and platelets of 245. Chemistry; sodium 143, potassium 3.6, chloride 101, bicarb is 35, anion gap of 10, BUN is 20, and creatinine is 1.67 downtrending. Calcium improved to 11. Ionized calcium of 1.4. SPEP, UPEP, and free kappa lambda chain all pending. Immunofixation pending. IMAGING STUDIES: None. IMPRESSION: 1. Chest pain, atypical in nature-normal cardiac stress testing and 2D echo back in November 2019, by her primary repair table operator-our Cardiology recommends no further workup. 2. Acute kidney secondary to dehydration. 3. Hypercalcemia, multifactorial from vitamin D, calcium supplements, and hydrochlorothiazide including dehydration-improving status post bisphosphonates given. 4. Hypothyroidism. 5. Electrolyte abnormalities. 6. Coronavirus PCR-negative. PLAN: At this time, continue with low dose IV fluids. She has been given pamidronate yesterday 60 mg with decreasing calcium at 11 today. Pending UPEP, SPEP, free kappa lambda chain, and immunofixation results. These likely take several days. If her calcium is better tomorrow, she can be discharged with followup with Endocrinology and Hematology as an outpatient to follow up on these results. I discussed this with the patient at bedside and she verbalized understanding. MD MANAN Hart/MICHAEL /[id number]
[2020-02-02] MEDS ORDERED: FUROSEMIDE INJ 10 MG/ML 2 ML VIAL IV ONE (15:30)
--- NOTE | 2020-02-02 16:08 | NUR ---
Pulmonary Medicine DATE 02/02/2020 SUBJECTIVE: mild sob, however not worse excess coughing NS at 75/hr ivf REVIEW OF SYSTEMS: no chest pain, no headaches OBJECTIVE: VITAL SIGNS: vital signs noted reviewed per the chart record. GENERAL: NAD, alert and calm. HEENT: Normocephalic, atraumatic. NECK: Supple. Throat midline. LUNGS: Bilateral air entry, limited especially at bases, but clear. CARDIOVASCULAR: S1, S2. No murmurs, rubs, or gallops. ABDOMEN: Soft, nontender. EXTREMITIES: No clubbing. No cyanosis. no edema. INTEGUMENT: No rash. No purpura. LABORATORY DATA: cr 1.67 k 3.6 IMPRESSION AND PLAN: 1. COVID direct contact/exposure, asymptomatic? 2. Admit with critical hypercalcemia, improving. 3. CKD presumed, possible stage 3. PADDY 4. Atelectasis. 5. Obesity, possible hypoventilation. 6. Possible fluid overload, BNP level 67. 7. Hypertension. 8. Hypothyroidism, chronic. Continue treatment for hypercalcemia per Renal specialist. negative COVID viral testing. Follow for upper or lower respiratory symptoms. If SOB worsens, get repeat CXR Long-term lung expansion and strengthening are recommended for the patient. Thank you very much, Dr. Barrow, for this consult. Please call for questions.
[2020-02-02] MEDS: ENOXAPARIN 30 MG/0.3 ML SYR SC SCH (17:04)
--- NOTE | 2020-02-02 17:48 | Progress Note ---
DATE: SUBJECTIVE: Ms. Storm is doing well. There is no new complaint. PHYSICAL EXAMINATION: GENERAL: Currently alert, oriented, does not seem in acute distress. VITAL SIGNS: Stable, currently afebrile. HEENT: Not icteric. NECK: Supple. CHEST: Clear. HEART: S1 and S2. ABDOMEN: Soft. IMPRESSION: 1. COVID-19 came back negative. The patient to be stable for discharge home. 2. Chest pain per Cardiology. 3. [id number] kidney disease. 4. Hypercalcemia. PLAN: From Infectious Disease point of view, the patient is stable, to be discharged and follow up as an outpatient. MD CONNIE Brady/MICHAEL /[id number]
--- NOTE | 2020-02-02 19:30 | NUR ---
received report from day nurse. patient is resting comfortably in bed. bed is in lowest position and call light is within reach. denies pain or discomfort. will continue to monitor patient.
[2020-02-03] VITALS (7 sets, daily range): BP systolic 117–175; BP diastolic 81–88
[2020-02-03] MEDS: SODIUM CHLORIDE 0.9% 1000ML 1,000 ML IV SCH (03:53)
[2020-02-03] MEDS: LEVOTHYROXINE SODIUM 112 MCG TAB PO SCH (05:23)
[2020-02-03] MEDS ORDERED: SODIUM CHLORIDE 0.9% 1000ML 250 ML IV STA ×2 (06:00)
[2020-02-03] MEDS ORDERED: SODIUM CHLORIDE 0.9% 1000ML 1,000 ML IV SCH ×2 (06:00→07:15)
--- NOTE | 2020-02-03 07:10 | NUR ---
report given to oncoming nurse, patient is resting in bed. bed is in lowest position and call light is within reach.
[2020-02-03 07:11] LABS: ANION GAP 9.7 mmol/L (8-16); CALCIUM 10.2 mg/dL (8.4-10.2); CREATININE, SERUM 1.56 mg/dL (0.57-1.11); POTASSIUM 3.7 mmol/L (3.5-5.1)
--- NOTE | 2020-02-03 07:20 | NUR ---
RED PT IN BED DEIES PAIN NO DISTRESS NOTED.
[2020-02-03] MEDS: HYDRALAZINE HCL 25 MG TAB PO SCH ×2 (09:00→17:05)
[2020-02-03] MEDS: METOPROLOL TARTRATE 25 MG TAB PO SCH ×2 (09:00→17:06)
[2020-02-03] MEDS: ASPIRIN 81 MG CHEW TAB PO SCH (09:14)
--- NOTE | 2020-02-03 13:00 | NUR ---
DR GOSS HERE ,INSTRUCTED TO HOL PT DISCHARGE UNTIL 02/04/20 AFTER HE SEES PT.
[2020-02-03] MEDS ORDERED: FUROSEMIDE INJ 10 MG/ML 4 ML VIAL IV ONE ×4 (13:45→20:30)
[2020-02-03] MEDS ORDERED: POTASSIUM CHLORIDE 20 MEQ TAB CR PO ONE (14:30)
--- NOTE | 2020-02-03 15:01 | Progress Note ---
DATE: 02/03/2020 Medicine Progress Note SUBJECTIVE: The patient is doing well today. The patient does complain of a little bit of shortness of breath. Fluids were stopped. Lasix will be given x2 today. Discussed with nursing staff. OBJECTIVE: VITAL SIGNS: Temperature is 97.1, pulse 59, respiratory rate is 20, blood pressure is 169/87, and pulse ox 98% on room air. GENERAL: In no acute distress. Alert and oriented x3. Cooperative on examination. HEENT: Head is normocephalic and atraumatic. Eyes, pupils are equal, round, and reactive to light bilaterally. Extraocular movements are intact bilaterally. Throat; no evidence of erythema or exudates in the posterior pharynx. Has poor dentition. NECK: Supple. Good range of motion. PULMONARY: Clear to auscultation bilaterally. No wheezing, no rales, no rhonchi, and no crackles appreciated. CARDIOVASCULAR: Positive S1 and S2. No murmurs, rubs, or gallops are appreciated. ABDOMEN: Soft, nondistended, and nontender to palpation. Bowel sounds present. MUSCULOSKELETAL: Strength is 5/5 throughout. No evidence of any muscle deficits on examination. No weakness appreciated. NEUROLOGIC: Cranial nerves II through XII grossly intact. No evidence of any neurological deficits on exam. SKIN: Intact. Warm to touch. Good cap refill. PSYCHIATRIC: Normal affect and mood. EXTREMITIES: No edema. Good range of motion throughout. LABORATORY FINDINGS: Show white count 6.2, hemoglobin 12, hematocrit 40, and platelets of 245. Chemistry; sodium 143, potassium 3.7, chloride 101, bicarb 36, anion gap of 9.7, BUN is 18, creatinine is 1.56, glucose is 81, calcium is 10.2, and ionized calcium is 1.4. Several labs are pending. UPEP, SPEP, free kappa lambda serum ratio pending. Alpha fetoprotein, CEA, CA 19-9, CA-125 are all pending tests ordered by Hematology. Urine immunofixation pending. IMPRESSION: 1. Chest pain, atypical in nature-normal cardiac stress testing and 2D echo were negative back in November 2019 by primary electronic publishing specialist in [place]. Dr. Santos, our electronic publishing specialist, recommends no further workup. 2. Acute kidney injury secondary to dehydration, improving. 3. Hypercalcemia, multifactorial from vitamin D, calcium supplements, hydrochlorothiazide including dehydration-improving with underlying bisphosphonates downtrending to calcium of 10.2 and ionized calcium of 1.4. 4. Hypothyroidism. 5. Electrolyte abnormalities. 6. Coronavirus PCR-negative. PLAN: At this time, discontinue IV fluids. Give Lasix 40 mg IV once and 40 mg IV at around 7 p.m. Get morning labs including calcium and ionized calcium. I discussed with the patient at bedside that her UPEP, SPEP, free kappa lambda chain, light chain and immunofixation including several other serologies have ordered by Hematology are still pending. I advised her that she needs to follow up with Endocrinology and Hematology as an outpatient to get these final results. The result will be back for at least another week as these labs are send out. She verbalized understanding and agrees to plan of care. I discussed the plan of care with nursing staff as well at bedside and they verbalized understanding. The patient understands following very closely with the consultants as an outpatient for final results. MD MANAN Hart/MICHAEL /[id number]
[2020-02-03] MEDS ORDERED: FUROSEMIDE INJ 10 MG/ML 2 ML VIAL IV ONE (16:00)
[2020-02-03] MEDS: ENOXAPARIN 30 MG/0.3 ML SYR SC SCH (17:06)
--- NOTE | 2020-02-03 18:38 | NUR ---
Pulmonary Medicine DATE 02/03/2020 SUBJECTIVE: patient with stable breathing remains on IVF no sob excess stable mild cough REVIEW OF SYSTEMS: no chest pain, no headaches OBJECTIVE: VITAL SIGNS: vital signs noted reviewed per the chart record. GENERAL: NAD, alert and calm. HEENT: Normocephalic, atraumatic. NECK: Supple. Throat midline. LUNGS: Bilateral air entry, limited especially at bases, but clear. CARDIOVASCULAR: S1, S2. No murmurs, rubs, or gallops. ABDOMEN: Soft, nontender. EXTREMITIES: No clubbing. No cyanosis. no edema. INTEGUMENT: No rash. No purpura. LABORATORY DATA: 3.7 k, cr 1.56. IMPRESSION AND PLAN: 1. COVID direct contact/exposure, with NEGATIVE COVID19 PCR 2. Admit with critical hypercalcemia, improving. 3. CKD presumed, possible stage 3. PADDY 4. Atelectasis. 5. Obesity, possible hypoventilation. 6. Possible fluid overload, BNP level 67. 7. Hypertension. 8. Hypothyroidism, chronic. Continue treatment for hypercalcemia per Renal specialist. negative COVID viral testing. Follow for upper or lower respiratory symptoms. If SOB worsens, get repeat CXR due to fluid loading Long-term lung expansion and strengthening are recommended for the patient. Thank you very much, Dr. Barrow, for this consult. Please call for questions.
--- NOTE | 2020-02-03 18:38 | NUR ---
PT UP IN BED DENIES PAIN NO DISTRESS NTOED,
--- NOTE | 2020-02-03 19:25 | NUR ---
RECEIVED REPORT FROM DAY NURSE. PATIENT IS RESTING COMFORTABLY IN THE BED. BED IS IN LOWEST POSITION AND CALL LIGHT IS WITHIN REACH. DENIES PAIN OR DISCOMFORT. WILL CONTINUE TO MONITOR PATIENT.
[2020-02-04] VITALS (8 sets, daily range): BP systolic 132–177; BP diastolic 69–90
--- NOTE | 2020-02-04 03:22 | Progress Note ---
DATE: 02/03/2020 Cardiology Progress Note SUBJECTIVE: No major events overnight. Denies any chest pain or shortness of breath. OBJECTIVE: VITAL SIGNS: Temperature afebrile, pulse 60, respiratory rate 18, blood pressure 160/84, saturating 100% on 2 L. GENERAL: Elderly female, in no acute distress. CARDIOVASCULAR: Regular rate and rhythm. No murmurs, rubs, or gallops. LUNGS: Clear to auscultation bilaterally. ABDOMEN: Soft, nontender, nondistended. NEURO AND PSYCH: Alert and oriented to person, place, and time. Normal affect. INPATIENT MEDICATIONS: Reviewed. LABORATORY DATA: Reviewed. TELEMETRY DATA: Reviewed, shows normal sinus rhythm with occasional PACs. ASSESSMENT AND PLAN: 1. Atypical chest pain. 2. Diastolic heart failure. 3. Hypertension. 4. Chronic kidney disease. RECOMMENDATIONS: Echocardiogram showed normal LV function. She is a patient of Dr. Santos and had recent nuclear stress test in October 2019, which is within normal limits. We will add amlodipine for better blood pressure control. Thank you for this consult. We will continue to follow. MD MELLY Reyes/MICHAEL /[id number]
[2020-02-04] MEDS: LEVOTHYROXINE SODIUM 112 MCG TAB PO SCH (05:35)
--- NOTE | 2020-02-04 07:00 | NUR ---
patient is resting comfortably in the bed. bed is in the lowest position and call light is within reach.
--- NOTE | 2020-02-04 07:04 | NUR ---
Received bedside shift report from off going nurse. Patient is resting in bed. No acute distress noted. Call light within reach. Bed in the lowest position.
[2020-02-04] MEDS: AMLODIPINE BESYLATE 10 MG TAB PO SCH (08:26)
[2020-02-04] MEDS: METOPROLOL TARTRATE 25 MG TAB PO SCH ×2 (08:26→16:23)
[2020-02-04] MEDS: HYDRALAZINE HCL 25 MG TAB PO SCH ×2 (08:26→16:22)
[2020-02-04] MEDS: ASPIRIN 81 MG CHEW TAB PO SCH (08:26)
[2020-02-04 11:09] LABS: ALPHA 2 GLOBULIN URINE PEP 10.3 % (.)
--- NOTE | 2020-02-04 12:40 | NUR ---
Pulmonary Medicine DATE 02/04/2020 SUBJECTIVE: 91% saturation at rest RA fio2 eating well BM REVIEW OF SYSTEMS: no chest pain, no headaches OBJECTIVE: VITAL SIGNS: vital signs noted reviewed per the chart record. GENERAL: NAD, alert and calm. HEENT: Normocephalic, atraumatic. NECK: Supple. Throat midline. LUNGS: Bilateral air entry, limited especially at bases, but clear. CARDIOVASCULAR: S1, S2. No murmurs, rubs, or gallops. ABDOMEN: Soft, nontender. EXTREMITIES: No clubbing. No cyanosis. no edema. INTEGUMENT: No rash. No purpura. LABORATORY DATA: no new updates IMPRESSION AND PLAN: 1. COVID direct contact/exposure, with NEGATIVE COVID19 PCR 2. Admit with critical hypercalcemia, improving. 3. CKD presumed, possible stage 3. PADDY 4. Atelectasis. 5. Obesity, possible hypoventilation. 6. Possible fluid overload, BNP level 67. 7. Hypertension. 8. Hypothyroidism, chronic. Continue treatment for hypercalcemia per Renal specialist. negative COVID viral testing. Follow for upper or lower respiratory symptoms. get repeat CXR due to fluid loading --check CXR with remnant low oxygen Long-term lung expansion and strengthening are recommended for the patient. check home oxygen evaluation Thank you very much, Dr. Barrow, for this consult. Please call for questions.
--- NOTE | 2020-02-04 13:42 | Diagnostic Imaging Report ---
EXAMINATION: CHEST SINGLE (PORTABLE) INDICATION: Hypoxemia COMPARISON: Chest radiograph 01/30/2020 FINDINGS: LINES/TUBES:EKG leads overlie the chest. LUNGS:The lungs are moderately inflated. No focal consolidation. There is perihilar fullness and indistinctness of the pulmonary vasculature. PLEURA:No pleural effusion or pneumothorax. MEDIASTINUM:The cardiomediastinal silhouette appears unchanged in size and shape. BONES/SOFT TISSUES:No acute osseous injury. ABDOMEN:No free air under the diaphragm. IMPRESSION: Mild central pulmonary vascular congestion. No focal pneumonia. Signed by: Kat Cordova MD on 02/04/2020 1:39 PM
--- NOTE | 2020-02-04 14:09 | NUR ---
dictated [id number] late entery 02/03/2020
--- NOTE | 2020-02-04 14:25 | Progress Note ---
DATE: SUBJECTIVE: Ms. Storm who is lying in bed comfortably. REVIEW OF SYSTEMS: HEENT: Negative. PULMONARY: Negative. PHYSICAL EXAMINATION: GENERAL: She is currently alert, oriented, does not seem in acute distress. VITAL SIGNS: Stable and afebrile. HEENT: She is not icteric. NECK: Supple. CHEST: Clear. HEART: S1, S2. No S3, S4, or murmur. ABDOMEN: Soft. The patient is currently lying in bed comfortably. Stable from Infectious Disease point of view. Discharge planning per Internal Medicine and other subspecialists. Discussed with medical team. MD CONNIE Brady/MICHAEL /[id number]
[2020-02-04] MEDS: FUROSEMIDE INJ 10 MG/ML 4 ML VIAL IV SCH ×2 (15:10→21:09)
[2020-02-04] MEDS ORDERED: POTASSIUM CHLORIDE 20 MEQ TAB CR PO SCH (15:15)
--- NOTE | 2020-02-04 15:31 | Progress Note ---
DATE: 02/04/2020 Medicine Progress Note SUBJECTIVE: The patient is doing well today. The patient still complains of shortness of breath upon ambulation. She did pee, had increased urine output after given diuretics and she says she has improved. She is currently off oxygen at this current moment. PHYSICAL EXAMINATION: VITAL SIGNS: Temperature 97.3, pulse 64, respiratory rate is 19, blood pressure 130/69, pulse ox 91% on room air. GENERAL: In no acute distress. Alert and oriented x3. Cooperative on examination. HEENT: Head is normocephalic and atraumatic. Eyes, pupils are equal, round, and reactive to light bilaterally. Extraocular movements are intact bilaterally. Throat; no evidence of erythema or exudates in the posterior pharynx. Has poor dentition. NECK: Supple. Good range of motion. PULMONARY: Clear to auscultation bilaterally. No wheezing, no rales, no rhonchi, and no crackles appreciated. CARDIOVASCULAR: Positive S1 and S2. No murmurs, rubs, or gallops are appreciated. ABDOMEN: Soft, nondistended, and nontender to palpation. Bowel sounds present. MUSCULOSKELETAL: Strength is 5/5 throughout. No evidence of any muscle deficits on examination. No weakness appreciated. NEUROLOGIC: Cranial nerves 2 through 12 grossly intact. No evidence of any neurological deficits on exam. SKIN: Intact. Warm to touch. Good cap refill. PSYCHIATRIC: Normal affect and mood. EXTREMITIES: No edema. Good range of motion throughout. LABORATORY DATA: Lab show CBC, none ordered. Chemistry is still pending. Urinalysis shows 0 protein to creatinine ratio. No M-spike noted. The kappa lambda free light chain was 1.69, slightly above normal, but less likely to have any kind of findings. Coronavirus was negative. IMAGING STUDIES: Chest x-ray from this morning shows mild central pulmonary vascular congestion. No focal pneumonia. IMPRESSION: 1. Chest pain, atypical-normal cardiac stress testing and 2D echo back in November 2019, by her primary claims adjuster supervisor, Dr. Santos, no further cardiac workup was needed. 2. Acute kidney injury secondary to dehydration-improving. 3. Hypercalcemia-improving, is all secondary to multifactorial from vitamin D, calcium supplements, hydrochlorothiazide, and dehydration. She has received some bisphosphonate. 4. Hypothyroidism. 5. Electrolyte abnormalities. 6. Coronavirus PCR-negative. PLAN: At this time, she is currently on room air, but gets short of breath upon ambulation. Give Lasix 40 mg IV q.8h x3 doses. Replace potassium. UPEP, SPEP, free kappa lambda chain seem to be negative. No M-spike noted. Get a.m. labs. Replace potassium. She will need to follow up with Endocrinology and Hematology as an outpatient. I discussed this with her at bedside with the nurse present. She verbalized understanding. Likely discharge tomorrow. MD MANAN Hart/MODL /[id number]
[2020-02-04 15:55] LABS: CALCIUM 11.6 mg/dL (8.4-10.2); CREATININE, SERUM 1.82 mg/dL (0.57-1.11)
[2020-02-04] MEDS: ENOXAPARIN 30 MG/0.3 ML SYR SC SCH (16:23)
--- NOTE | 2020-02-04 16:45 | Progress Note ---
DATE: 02/04/2020 Cardiology Progress Note SUBJECTIVE: The patient denies chest pain. She reports her shortness of breath is better. OBJECTIVE: VITAL SIGNS: Temperature 97.3, pulse 64, respiratory rate 19, blood pressure 132/69, oxygen 91% on 2 L nasal cannula. GENERAL: Elderly woman in no acute distress, awake and alert. LUNGS: Clear to auscultation bilaterally. No wheezes or crackles. HEART: Normal rate, regular rhythm. No murmur. Normal S1, S2. ABDOMEN: Soft, nontender. EXTREMITIES: No edema. NEURO: Nonfocal exam. CARDIAC MEDICATIONS: Amlodipine 10 mg p.o. daily, hydralazine 25 mg p.o. b.i.d., aspirin 81 mg p.o. daily, metoprolol tartrate 25 mg p.o. b.i.d., levothyroxine 112 mcg p.o. daily, enoxaparin 30 mg subcu daily. LABORATORY DATA: None today. TELEMETRY: Normal sinus rhythm. IMPRESSION: 1. Atypical chest pain. 2. Diastolic heart failure. 3. Hypertension. 4. Chronic kidney disease. RECOMMENDATIONS: The patient had recent nuclear stress test in October 2019, which was within normal limits. Echocardiogram shows normal LV systolic function. Her blood pressure is better. Monitor response to addition of amlodipine. Continue current cardiac medications. No further cardiac evaluation is indicated at this time. Thank you for this consult. We will continue to follow. Crissy Arambula MD ABS/MODL /[id number]
--- NOTE | 2020-02-04 19:15 | NUR ---
patient received awake, alert, lying quietly in bed. no c/o pain noted. pm assessment complete. patient instructed to call for assistance when needed.
--- NOTE | 2020-02-04 19:15 | NUR ---
Bedside shift report given to oncoming nurse. Patient is resting in bed. No acute distress noted at this time. Call light within reach. Bed in the lowest position.
[2020-02-05] VITALS: BP 162/81
[2020-02-05 04:00] VITALS: BP 172/82
[2020-02-05] MEDS: LEVOTHYROXINE SODIUM 112 MCG TAB PO SCH (06:00)
[2020-02-05] MEDS: FUROSEMIDE INJ 10 MG/ML 4 ML VIAL IV SCH (06:00)
--- NOTE | 2020-02-05 07:00 | NUR ---
RECEIVED REPORT FROM PROVIDER RELATIONS REPRESENTATIVE NURSE, PATIENT IS A&OX3, LAYING IN BED, NO DISTRESS NOTED, BED IS LOW AND LOCKED, SIDE RAILS UPX2, CALL LIGHT WITHIN REACH.
[2020-02-05 07:21] LABS: ANION GAP 12.5 mmol/L (8-16); CALCIUM 11.5 mg/dL (8.4-10.2); CREATININE, SERUM 1.95 mg/dL (0.57-1.11); POTASSIUM 3.5 mmol/L (3.5-5.1)
[2020-02-05 07:43] VITALS: BP 143/87
[2020-02-05 07:53] VITALS: BP 143/87
[2020-02-05] MEDS: AMLODIPINE BESYLATE 10 MG TAB PO SCH (08:13)
[2020-02-05] MEDS: ASPIRIN 81 MG CHEW TAB PO SCH (08:13)
[2020-02-05] MEDS: METOPROLOL TARTRATE 25 MG TAB PO SCH (08:13)
[2020-02-05] MEDS: HYDRALAZINE HCL 25 MG TAB PO SCH (08:13)
--- NOTE | 2020-02-05 09:13 | NUR ---
Per Dr. Barrow walk patient and assess O2 sats while walking after lasix therapy. Nurse walked patient to the end of fiore and back to room, patient O2 sats between 93-96% on room air, denies shortness of breath. Notified Dr. Barrow at this time. No new orders received.
[2020-02-05 11:31] VITALS: BP 145/93
--- NOTE | 2020-02-05 12:35 | NUR ---
Pulmonary Medicine DATE 02/05/2020 SUBJECTIVE: RA fio2 eating well BM walked REVIEW OF SYSTEMS: no chest pain, no headaches OBJECTIVE: VITAL SIGNS: vital signs noted reviewed per the chart record. GENERAL: NAD, alert and calm. HEENT: Normocephalic, atraumatic. NECK: Supple. Throat midline. LUNGS: Bilateral air entry, limited especially at bases, but clear. CARDIOVASCULAR: S1, S2. No murmurs, rubs, or gallops. ABDOMEN: Soft, nontender. EXTREMITIES: No clubbing. No cyanosis. no edema. INTEGUMENT: No rash. No purpura. LABORATORY DATA: no new updates IMPRESSION AND PLAN: 1. COVID direct contact/exposure, with NEGATIVE COVID19 PCR 2. Admit with critical hypercalcemia, improving. 3. CKD presumed, possible stage 3. PADDY 4. Atelectasis. 5. Obesity, possible hypoventilation. 6. Possible fluid overload, BNP level 67. 7. Hypertension. 8. Hypothyroidism, chronic. Continue treatment for hypercalcemia per Renal specialist. negative COVID viral testing. Follow for upper or lower respiratory symptoms. repeat future CXR and oxygen testing --last CXR with mild fluid excess Long-term lung expansion and strengthening are recommended for the patient. possible home soon if she continues to stabilize Thank you very much, Dr. Barrow, for this consult. Please call for questions.
[2020-02-05] MEDS ORDERED: METOPROLOL TART25 MG PO (13:33)
[2020-02-05] MEDS ORDERED: LASIX20 MG PO (13:34)
[2020-02-05] MEDS ORDERED: HYDRALAZINE HCL25 MG PO (13:34)
--- NOTE | 2020-02-05 13:42 | NUR ---
CALLED PATIENT'S DAUGHTER NIA TO INFORM THAT PATIENT IS BEING D/C'D AND THAT PATIENT NEEDS TO FOLLOW UP TO GET LABS DRAWN WITH DR. CLIFFORD. PATIENT'S DAUGHTER VERBALIZED UNDERSTANDING.
--- NOTE | 2020-02-05 13:57 | NUR ---
EDUCATED PATIENT ON D/C INSTRUCTIONS, PATIENT INSTRUCTED TO F/U WITH PCP, DR. CLIFFORD, AND DR. RAMSAY IN 7- 10 DAYS, PATIENT VERBALIZED UNDERSTANDING. IV TO LEFT AC 20G REMOVED INTACT. 2X2 AND COBAN APPLIED. PATIENT WAITING ON DAUGHTER FOR LUMBER STICKER.
--- NOTE | 2020-02-05 14:35 | Discharge Summary ---
FINAL DISCHARGE DIAGNOSES: 1. Atypical chest pain-had a normal cardiac stress testing and 2D echo back in November 2019, our asbestos microscopist had no further workup needed. 2. Acute kidney injury, likely underlying chronic kidney disease, stage 3. 3. Hypercalcemia-improving multifactorial from vitamin D, calcium supplements, hydrochlorothiazide, and dehydration. I had received some bisphosphonate here in the hospital. 4. Hypothyroidism. 5. Electrolyte abnormalities. 6. Coronavirus PCR negative. CONSULTANTS: ID, Cardiology, Endocrinology, Hematology. PHYSICAL EXAMINATION: VITAL SIGNS: Temperature is 97.8, pulse 68, respiratory rate 18, blood pressure 145/93, and pulse ox 96% on room air. LABORATORY FINDINGS: Show white count is 6.2, hemoglobin is 12, hematocrit is 40, platelets of 245. Chemistry; sodium 143, potassium 3.5, chloride 95, bicarb 30, anion gap of 12, BUN is 20, creatinine is 1.95. Hemoglobin A1c was 5.6, calcium was 11.5, which downtrended on admission from 15.8-11.5, was given bisphosphonate. Ionized calcium is 1.4. LFTs within normal range. BNP is 67. Troponins are negative. M-spike is nonobserved. Fetoprotein was 2.1. CEA is 1.4. CA-19-9 was 40. CA-125 is 20. Vitamin D2 level is less than one. Vitamin D level is 39. TSH is 1.9. Intact PTH is 10. Urine protein to creatinine is zero. Urine random M-spike was not observed. Urine immunofixation was negative. No evidence of any monoclonal protein seen. Total kappa-lambda ratio was 1.69. Coronavirus PCR was negative. IMAGING STUDIES: Chest x-ray on admission shows some mild bilateral pulmonary venous congestion. CT brain found to be negative. Chest x-ray performed on 02/04/2020 shows some mild pulmonary vascular congestion. No focal pneumonia. HOSPITAL COURSE: This is a 74-year-old female, who came into the ED with complaints of underlying chest pain 7 days prior to arrival to the hospital. Cardiology was consulted. Apparently, the patient was seeing a asbestos microscopist in [place], Dr. Santos and had a recent cardiac stress testing and 2D echo performed back in November of 2019, found to have normal testing at that time. The patient provided us the documentation, which she showed me and the asbestos microscopist. Those tests were found to be negative. Our asbestos microscopist here stated that this is likely to be atypical in nature. No further cardiac workup was needed. While here, she was found to have acute kidney injury, presumed to be from underlying dehydration. She was also found to have hypercalcemia with a calcium level of 15.6, serum calcium level. While here, the patient was on aggressive IV fluid hydration with normal saline. She was apparently taking vitamin D, calcium supplements, hydrochlorothiazide, as well as very dehydrated on examination and at home. While here, her calcium continued to downtrend, but at some point, it continued to become very stagnant, prompting further evaluation and management. Endocrinology and Hematology were consulted. Several serologies were ordered and so far were found to be negative. There are still several serologies pending. Her calcium level on discharge was 11.5. I had a long discussion with the patient at bedside and discussed with her the importance of following up with Endocrinology as an outpatient in about one week time with repeat labs. I also discussed with her about not taking any calcium supplements, vitamin D level or even hydrochlorothiazide. Instead, I gave her oral Lasix. She did receive bisphosphonate 60 mg IV once here in the hospital stay. I discussed this case with Endocrinology and he agreed for the patient to be discharged with followup in 1 week in his office. I verbalized this to the patient with the nursing staff present at bedside and the patient verbalized to make an appointment and get repeat calcium in 1 week time. The patient's shortness of breath on admission improved after given IV diuretics. It was felt to be from underlying IV fluid hydration. Pulmonary was consulted. Chest x-ray initially shows some pulmonary edema, but with IV diuretics. The patient was breathing well. She was ambulating with no issues. Her shortness of breath is resolved. She was on room air prior to being discharged home. She was cleared for discharge by Pulmonary. While here there is some concern for coronavirus, so testing was performed and the patient was isolated. Her coronavirus PCR was found to be negative. ID was consulted in relation to this coronavirus PCR and also further evaluation and management. Since her PCR was negative, she was cleared for discharge by ID standpoint. On discharge, the patient was doing well back to normal baseline with no complaints. On the day of discharge, vital signs were stable. Labs reviewed and stable. The patient was seen and evaluated, examined thoroughly on the day of discharge. No other complaints. The patient verbalized understanding and agrees to plan of care to follow up accordingly as an outpatient with primary care physician in 1 week and the rest of the consults described above in about 1 to 2 weeks' time. She must follow up with Endocrinology in 1 week time with repeat calcium level as I discussed this with her at bedside with the nurse staff present including the general internal medicine doctor and the patient verbalized understanding and agrees to plan of care. This will be reiterated to the patient's daughter by the nursing staff to follow very closely. MEDICATIONS: See med reconciliation form. DISPOSITION: Home. CONDITION: Stable. DIET: Heart healthy. In the event of any worsening symptoms, the patient was come back to the ED for further evaluation. Discharge summary took greater than 35 minutes. MD MANAN Hart/MICHAEL /[id number]
--- NOTE | 2020-02-05 14:35 | NUR ---
PATIENT ACCOMPANIED TO PRIVATE AUTO BY STAFF VIA WHEELCHAIR FOR D/C HOME, NO DISTRESS NOTED. ALL QUESTIONS ANSWERED, ALL BELONGINGS WITH PATIENT INCLUDING HOME MEDICATIONS.
== END 2020-02-05 14:36 | disposition home or self-care (01) | DRG 291 ==
LOC: ER 22:47 → ERHOLD 01-27 00:22 → MED/SURG 01-27 00:49 → OBSVTOIN 01-28 13:13 → IMCU 01-30 17:39 → MED/SURG 01-30 17:46 → IMCU 01-30 20:35 → MED/SURG3 02-01 22:18
PROVIDERS: ADMIT Internal Medicine; ATTEND Internal Medicine
DX: I13.0 Hypertensive heart and chronic kidney disease with heart failure and stage 1 through stage 4 chronic kidney disease, or unspecified chronic kidney disease (principal); I50.33 Acute on chronic diastolic (congestive) heart failure; N17.9 Acute kidney failure, unspecified; J98.11 Atelectasis; Z68.41 Body mass index [BMI] 40.0-44.9, adult; E66.2 Morbid (severe) obesity with alveolar hypoventilation; E83.52 Hypercalcemia; E86.0 Dehydration; I10 Essential (primary) hypertension; N18.3 Chronic kidney disease, stage 3 (moderate); E87.8 Other disorders of electrolyte and fluid balance, not elsewhere classified; T50.2X5A Adverse effect of carbonic-anhydrase inhibitors, benzothiadiazides and other diuretics, initial encounter; T45.2X5A Adverse effect of vitamins, initial encounter; E03.9 Hypothyroidism, unspecified; I25.10 Atherosclerotic heart disease of native coronary artery without angina pectoris; Z20.828 Contact with and (suspected) exposure to other viral communicable diseases
CPT/HCPCS: 36415; 70450; 71045; 80048; 80053; 82044; 82105; 82306; 82378; 82550; 82553; 82570; 82948; 83036; 83880; 83970; 84156; 84165; 84166; 84439; 84443; 84484; 85025; 86301; 86304; 86335; 87635; 93005; 93306; 96360; 96361; 99284; G0378; J0360; J1650; J1940; J2430; J7030; J7040

== ENCOUNTER 2023-04-27 16:09 | Inpatient (IN) | payer BC, MEDICARE ==
[~2023-04-27] VITALS: Ht 165.1 cm; Wt 109.6 kg
[~2023-04-27 16:09] MED LIST changes: +CARVEDILOL12.5 MG PO; +HYDRALAZINE HCL25 MG PO; +HYDROCHLOROTHIA25 MG; +LASIX20 MG PO; +LOSARTAN POTAS100 MG PO; +METOPROLOL TART25 MG PO
[2023-04-27 17:29] LABS: BASOPHILS % 0.5 % (0.0-1.0); EOSINOPHILS # (AUTO) 0.4 (0.0-0.4); EOSINOPHILS % 6.1 % (0.0-6.0); HEMATOCRIT 38.9 % (34.2-44.1); HEMOGLOBIN 11.7 g/dL (12.0-16.0); LYMPHOCYTES # (AUTO) 1.2 (1.0-3.2); LYMPHOCYTES % 19.6 % (18.0-39.1); MEAN CORPUSCULAR HEMOGLOBIN 26.2 pg (28-32); MEAN CORPUSCULAR HGB CONC 30.1 g/dL (31-35); MONOCYTES # (AUTO) 0.4 (0.2-0.8); MONOCYTES % 6.7 % (4.4-11.3); NEUTROPHILS # (AUTO) 4.2 (2.1-6.9); NEUTROPHILS % 66.9 % (38.7-80.0); PLATELET COUNT 228 x10e3/uL (140-360); RED BLOOD COUNT 4.47 x10e6/uL (3.6-5.1); RED CELL DISTRIBUTION WIDTH 16.8 % (11.7-14.4)
[2023-04-27] MEDS ORDERED: NITROGLYCERIN 2% OINT 1 GM PKT TOP ONE (17:30)
[2023-04-27] MEDS ORDERED: FUROSEMIDE INJ 10 MG/ML 4 ML VIAL IV ONE (17:30)
[2023-04-27 17:40] LABS: INR 0.86; PARTIAL THROMBOPLASTIN TIME 30.9 seconds (23.8-35.5); PROTHROMBIN TIME 12.2 seconds (11.9-14.5)
[2023-04-27 17:44] LABS: ALBUMIN 3.8 g/dL (3.5-5.0); ANION GAP 13.2 mmol/L (8-16); CALCIUM 9.8 mg/dL (8.4-10.2); CREATININE, SERUM 1.96 mg/dL (0.57-1.11); POTASSIUM 4.2 mmol/L (3.5-5.1)
[2023-04-27] MEDS ORDERED: Morphine 2mg Syringe 2 MG/ML SYR IV PRN (18:30)
[2023-04-27] MEDS ORDERED: SODIUM CHLORIDE FLUSH 10 ML SYR INJ PRN (18:30)
[2023-04-27] MEDS ORDERED: ONDANSETRON HCL INJ 2MG/ML 2ML 2 MG/ML VIAL IV PRN (18:30)
[2023-04-27 18:31] LABS: CLARITY,URINE CLEAR (CLEAR); COLOR,URINE YELLOW (YELLOW); LEUKOCYTE ESTERASE ,URINE NEGATIVE (NEGATIVE); NITRITE,URINE NEGATIVE (NEGATIVE)
[2023-04-27 18:32] LABS: KETONES,URINE NEGATIVE (NEGATIVE); PROTEIN,URINE DIPSTICK NEGATIVE (NEGATIVE); URINE UROBILINOGEN 0.2 mg/dL (0.2 - 1)
[2023-04-27 18:42] LABS: EPITHELIAL CELLS,URINE RARE /LPF
[2023-04-27 20:15] VITALS: PULSE 69; RESP 20; O2SAT 98
[2023-04-27] MEDS ORDERED: ALBUTEROL/IPRATROPIUM 3 ML NEB NEB PRN (21:15)
[2023-04-27] MEDS ORDERED: ACETAMINOPHEN 325 MG TAB PO PRN (21:15)
[2023-04-28 06:29] VITALS: PULSE 73; RESP 20; O2SAT 98
[2023-04-28 06:36] LABS: BASOPHILS # (AUTO) 0.1 (0.0-0.1); BASOPHILS % 0.9 % (0.0-1.0); EOSINOPHILS # (AUTO) 0.4 (0.0-0.4); EOSINOPHILS % 6.4 % (0.0-6.0); HEMATOCRIT 36.2 % (34.2-44.1); HEMOGLOBIN 10.6 g/dL (12.0-16.0); LYMPHOCYTES # (AUTO) 1.3 (1.0-3.2); MEAN CORPUSCULAR HEMOGLOBIN 25.9 pg (28-32); MEAN CORPUSCULAR HGB CONC 29.3 g/dL (31-35); MEAN CORPUSCULAR VOLUME 88.5 fL (81-99); MONOCYTES # (AUTO) 0.5 (0.2-0.8); NEUTROPHILS # (AUTO) 3.5 (2.1-6.9); NEUTROPHILS % 60.5 % (38.7-80.0); PLATELET COUNT 201 x10e3/uL (140-360); RED BLOOD COUNT 4.09 x10e6/uL (3.6-5.1); RED CELL DISTRIBUTION WIDTH 16.5 % (11.7-14.4)
[2023-04-28 07:16] LABS: ALBUMIN 3.3 g/dL (3.5-5.0); ALBUMIN/GLOBULIN RATIO 0.9 (0.8-2.0); ANION GAP 12.8 mmol/L (8-16); CALCIUM 9.2 mg/dL (8.4-10.2); CREATININE, SERUM 1.67 mg/dL (0.57-1.11); POTASSIUM 3.8 mmol/L (3.5-5.1)
[2023-04-28] MEDS: LEVOTHYROXINE SODIUM 112 MCG TAB PO SCH (09:00)
[2023-04-28] MEDS: ASPIRIN 81 MG CHEW TAB PO SCH (12:37)
[2023-04-28] MEDS: METOPROLOL TARTRATE 25 MG TAB PO SCH ×2 (12:38→16:17)
[2023-04-28] MEDS: HYDRALAZINE HCL 25 MG TAB PO SCH ×2 (12:38→16:15)
[2023-04-28] MEDS: HEPARIN SOD (PORCINE) 5,000 UNIT/ML VIAL SC SCH ×2 (12:40→20:34)
[2023-04-28] MEDS ORDERED: FUROSEMIDE INJ 10 MG/ML 4 ML VIAL IV ONE (12:45)
[2023-04-28 14:03] VITALS: BP 171/84; PULSE 57; RESP 20; O2SAT 98
[2023-04-28 14:15] VITALS: BP 164/96; PULSE 64; RESP 18; TEMP 98.2; O2SAT 98
[2023-04-28 16:06] VITALS: BP 164/96; PULSE 68; RESP 20; TEMP 98.4; O2SAT 98
[2023-04-28] MEDS: CLONIDINE HCL 0.1 MG TAB PO PRN (20:35)
[2023-04-28 20:44] VITALS: BP 174/99; PULSE 72; RESP 22; TEMP 97.8; O2SAT 98
[2023-04-28 21:00] VITALS: BP 174/99; PULSE 72; RESP 22; TEMP 97.8; O2SAT 98
[2023-04-29] VITALS (7 sets, daily range): BP systolic 153–170; BP diastolic 81–97; PULSE 56–68; RESP 18–22; TEMP 97.5–98.3; O2SAT 95–99
[2023-04-29] MEDS: CLONIDINE HCL 0.1 MG TAB PO PRN ×2 (02:27→20:35)
[2023-04-29 06:07] LABS: ANION GAP 14.9 mmol/L (8-16); CALCIUM 8.9 mg/dL (8.4-10.2); CREATININE, SERUM 1.49 mg/dL (0.57-1.11); POTASSIUM 3.9 mmol/L (3.5-5.1)
[2023-04-29] MEDS ORDERED: AZITHROMYCIN 250 MG TAB PO SCH (09:00)
[2023-04-29] MEDS ORDERED: FUROSEMIDE INJ 10 MG/ML 4 ML VIAL IV SCH (09:00)
[2023-04-29] MEDS: HEPARIN SOD (PORCINE) 5,000 UNIT/ML VIAL SC SCH ×2 (09:00→20:31)
[2023-04-29] MEDS: METOPROLOL TARTRATE 25 MG TAB PO SCH ×2 (09:52→17:13)
[2023-04-29] MEDS: ASPIRIN 81 MG CHEW TAB PO SCH (09:52)
[2023-04-29] MEDS: HYDRALAZINE HCL 25 MG TAB PO SCH ×2 (09:53→17:13)
[2023-04-29] MEDS: LEVOTHYROXINE SODIUM 112 MCG TAB PO SCH (09:57)
[2023-04-29] MEDS: FUROSEMIDE INJ 10 MG/ML 4 ML VIAL IV SCH (17:14)
[2023-04-30] MEDS ORDERED: LEVOTHYROXINE SODIUM 112 MCG TAB PO SCH (06:00)
[2023-04-30 06:48] VITALS: BP 151/87; PULSE 56; RESP 16; TEMP 97.8; O2SAT 99
[2023-04-30 07:07] LABS: ALBUMIN 3.2 g/dL (3.5-5.0); ALBUMIN/GLOBULIN RATIO 0.9 (0.8-2.0); ANION GAP 13.7 mmol/L (8-16); CALCIUM 9.4 mg/dL (8.4-10.2); CREATININE, SERUM 1.54 mg/dL (0.57-1.11); POTASSIUM 3.7 mmol/L (3.5-5.1)
[2023-04-30 08:33] VITALS: BP 151/87; PULSE 56; RESP 16; TEMP 97.8; O2SAT 99
[2023-04-30 08:38] VITALS: BP 143/95; PULSE 60; RESP 18; TEMP 98.1; O2SAT 100
[2023-04-30] MEDS: HEPARIN SOD (PORCINE) 5,000 UNIT/ML VIAL SC SCH (08:50)
[2023-04-30] MEDS: ASPIRIN 81 MG CHEW TAB PO SCH (08:52)
[2023-04-30] MEDS: METOPROLOL TARTRATE 25 MG TAB PO SCH (08:52)
[2023-04-30] MEDS: FUROSEMIDE INJ 10 MG/ML 4 ML VIAL IV SCH (08:52)
[2023-04-30] MEDS: HYDRALAZINE HCL 25 MG TAB PO SCH (08:53)
[2023-04-30] MEDS ORDERED: LASIX20 MG PO (10:53)
[2023-04-30 12:39] VITALS: BP 143/87; PULSE 63; RESP 20; TEMP 98.2; O2SAT 100
== END 2023-04-30 14:45 | disposition home or self-care (01) | DRG 291 ==
LOC: ER 17:07 → ERHOLD 18:30 → MED/SURG2 04-28 13:55
PROVIDERS: ADMIT Internal Medicine; ATTEND Internal Medicine
DX: I13.0 Hypertensive heart and chronic kidney disease with heart failure and stage 1 through stage 4 chronic kidney disease, or unspecified chronic kidney disease (principal); I50.33 Acute on chronic diastolic (congestive) heart failure; J98.11 Atelectasis; N17.9 Acute kidney failure, unspecified; Z68.41 Body mass index [BMI] 40.0-44.9, adult; N18.30 Chronic kidney disease, stage 3 unspecified; E78.00 Pure hypercholesterolemia, unspecified; E03.9 Hypothyroidism, unspecified; N28.89 Other specified disorders of kidney and ureter; E66.9 Obesity, unspecified; R60.0 Localized edema; M19.90 Unspecified osteoarthritis, unspecified site; G47.30 Sleep apnea, unspecified; J44.9 Chronic obstructive pulmonary disease, unspecified; M81.0 Age-related osteoporosis without current pathological fracture; Z20.822 Contact with and (suspected) exposure to COVID-19; R91.1 Solitary pulmonary nodule; Z90.711 Acquired absence of uterus with remaining cervical stump; Z86.711 Personal history of pulmonary embolism; Z59.6 Low income; Z91.041 Radiographic dye allergy status; Z79.82 Long term (current) use of aspirin; Z79.890 Hormone replacement therapy; Z79.899 Other long term (current) drug therapy; Z84.1 Family history of disorders of kidney and ureter
CPT/HCPCS: 36415; 51700; 71045; 71046; 71250; 74150; 80048; 80053; 81001; 82550; 83880; 84443; 84484; 85025; 85610; 85730; 93005; 93306; 94799; 99284; J0696; J1644; J1940; J7050

== ENCOUNTER 2023-10-02 22:25 | Inpatient (IN) | payer MEDICARE ==
[~2023-10-02] VITALS: Ht 165.1 cm; Wt 109.3 kg
[2023-10-02] MEDS ORDERED: SODIUM CHLORIDE 0.9% 1000ML 1,000 ML IV STA (22:39)
[2023-10-02] MEDS ORDERED: SODIUM CHLORIDE 0.9% 1000ML 0 ML ONE (22:44)
[2023-10-02 22:57] LABS: BASOPHILS % 0.2 % (0.0-1.0); EOSINOPHILS % 0.4 % (0.0-6.0); HEMATOCRIT 40.7 % (34.2-44.1); HEMOGLOBIN 12.7 g/dL (12.0-16.0); MEAN CORPUSCULAR HEMOGLOBIN 26.8 pg (28-32); MEAN CORPUSCULAR HGB CONC 31.2 g/dL (31-35); MEAN CORPUSCULAR VOLUME 85.9 fL (81-99); MONOCYTES # (AUTO) 0.8 (0.2-0.8); MONOCYTES % 13.8 % (4.4-11.3); NEUTROPHILS # (AUTO) 3.9 (2.1-6.9); NEUTROPHILS % 68.4 % (38.7-80.0); PLATELET COUNT 184 x10e3/uL (140-360); RED BLOOD COUNT 4.74 x10e6/uL (3.6-5.1); RED CELL DISTRIBUTION WIDTH 14.9 % (11.7-14.4); WHITE BLOOD COUNT 5.64 x10e3/uL (4.8-10.8)
[2023-10-02] MEDS ORDERED: HYDRALAZINE HCL 20 MG/ML VIAL IV STA (23:08)
[2023-10-02 23:13] LABS: ANION GAP 18.1 mmol/L (8-16); CALCIUM 10.3 mg/dL (8.4-10.2); CREATININE, SERUM 1.71 mg/dL (0.57-1.11); POTASSIUM 3.1 mmol/L (3.5-5.1); TOTAL PROTEIN 7.9 g/dL (6.5-8.1)
[2023-10-02 23:19] LABS: TROPONIN I 0.042 ng/mL (0-0.300)
[2023-10-03] VITALS (11 sets, daily range): BP systolic 141–170; BP diastolic 81–95; PULSE 62–78; RESP 16–19; TEMP 97.3–98.8; O2SAT 95–100
[2023-10-03] MEDS ORDERED: ONDANSETRON HCL INJ 2MG/ML 2ML 2 MG/ML VIAL IV PRN (00:30)
[2023-10-03] MEDS ORDERED: Morphine 4mg INJECTION 4 MG/ML INJ IV PRN (00:30)
[2023-10-03] MEDS ORDERED: SODIUM CHLORIDE FLUSH 10 ML SYR INJ PRN (00:30)
[2023-10-03] MEDS ORDERED: METOPROLOL TARTRATE INJ 1 MG/ML VIAL IV STA (00:38)
[2023-10-03] MEDS ORDERED: HYDRALAZINE HCL 20 MG/ML VIAL IV PRN (00:45)
[2023-10-03 01:45] LABS: BILIRUBIN,URINE NEGATIVE (NEGATIVE); CLARITY,URINE CLOUDY (CLEAR); COLOR,URINE YELLOW (YELLOW); GLUCOSE, URINE NEGATIVE (NEGATIVE); KETONES,URINE 1+ (NEGATIVE); LEUKOCYTE ESTERASE ,URINE NEGATIVE (NEGATIVE); NITRITE,URINE NEGATIVE (NEGATIVE); PH,URINE 7 (5 - 7); PROTEIN,URINE DIPSTICK 2+ (NEGATIVE); URINE UROBILINOGEN 0.2 mg/dL (0.2 - 1)
[2023-10-03 01:52] LABS: BACTERIA,URINE FEW /HPF; RBC,URINE 0-5 /HPF (0-5); WBC,URINE (MAN) 0-5 /HPF (0-5)
[2023-10-03 01:53] LABS: EPITHELIAL CELLS,URINE FEW /LPF; MUCUS,URINE FEW (RARE); TRANSITIONAL EPI CELLS,URINE FEW
[2023-10-03] MEDS ORDERED: LOSARTAN POTASS25 MG PO (03:52)
[2023-10-03] MEDS ORDERED: ATORVASTATIN CA10 MG PO (03:53)
[2023-10-03] MEDS ORDERED: HYDROCHLOROTH12.5 MG PO (03:54)
[2023-10-03 06:32] LABS: TROPONIN I 0.032 ng/mL (0-0.300)
[2023-10-03] MEDS ORDERED: ACETAMINOPHEN 325 MG TAB PO PRN (11:45)
[2023-10-03] MEDS ORDERED: POTASSIUM CHLORIDE 10MEQ EA PO ONE (12:00)
[2023-10-03 14:33] LABS: TROPONIN I 0.038 ng/mL (0-0.300)
[2023-10-03] MEDS: HYDRALAZINE HCL 25 MG TAB PO SCH (16:01)
[2023-10-03] MEDS: METOPROLOL TARTRATE 25 MG TAB PO SCH (16:02)
[2023-10-03] MEDS: ATORVASTATIN 10 MG TAB PO SCH (20:44)
[2023-10-03] MEDS: HEPARIN SOD (PORCINE) 5,000 UNIT/ML VIAL SC SCH (20:46)
[2023-10-04] VITALS (8 sets, daily range): BP systolic 148–177; BP diastolic 94–111; PULSE 63–71; RESP 17–20; TEMP 97.7–99.2; O2SAT 96–100
[2023-10-04 05:50] LABS: BASOPHILS % 0.4 % (0.0-1.0); EOSINOPHILS # (AUTO) 0.1 (0.0-0.4); EOSINOPHILS % 2.5 % (0.0-6.0); HEMATOCRIT 37.5 % (34.2-44.1); HEMOGLOBIN 11.5 g/dL (12.0-16.0); LYMPHOCYTES # (AUTO) 1.3 (1.0-3.2); LYMPHOCYTES % 26.8 % (18.0-39.1); MEAN CORPUSCULAR HEMOGLOBIN 26.9 pg (28-32); MEAN CORPUSCULAR HGB CONC 30.7 g/dL (31-35); MEAN CORPUSCULAR VOLUME 87.6 fL (81-99); MONOCYTES # (AUTO) 0.8 (0.2-0.8); MONOCYTES % 16.4 % (4.4-11.3); NEUTROPHILS # (AUTO) 2.6 (2.1-6.9); NEUTROPHILS % 53.7 % (38.7-80.0); PLATELET COUNT 176 x10e3/uL (140-360); RED BLOOD COUNT 4.28 x10e6/uL (3.6-5.1); RED CELL DISTRIBUTION WIDTH 15.3 % (11.7-14.4); WHITE BLOOD COUNT 4.89 x10e3/uL (4.8-10.8)
[2023-10-04] MEDS: LEVOTHYROXINE SODIUM 112 MCG TAB PO SCH (06:16)
[2023-10-04 06:17] LABS: ALBUMIN 3.3 g/dL (3.5-5.0); ALBUMIN/GLOBULIN RATIO 0.9 (0.8-2.0); ANION GAP 13.4 mmol/L (8-16); CALCIUM 9.4 mg/dL (8.4-10.2); CREATININE, SERUM 1.79 mg/dL (0.57-1.11); POTASSIUM 3.4 mmol/L (3.5-5.1); TOTAL PROTEIN 6.8 g/dL (6.5-8.1)
[2023-10-04 06:48] LABS: TROPONIN I 0.037 ng/mL (0-0.300)
[2023-10-04] MEDS ORDERED: LEVOTHYROXINE SODIUM 112 MCG PO SCH (09:00)
[2023-10-04] MEDS: METOPROLOL TARTRATE 25 MG TAB PO SCH (09:17)
[2023-10-04] MEDS: HYDRALAZINE HCL 25 MG TAB PO SCH ×2 (09:18→11:49)
[2023-10-04] MEDS: HEPARIN SOD (PORCINE) 5,000 UNIT/ML VIAL SC SCH ×2 (09:21→21:03)
[2023-10-04] MEDS ORDERED: NON-FORMULARY MEDICATION (Hydrochlorothiazide 12.5 MG) PO SCH (11:00)
[2023-10-04] MEDS ORDERED: POTASSIUM CHLORIDE 20 MEQ TAB CR PO ONE (11:45)
[2023-10-04] MEDS: HYDROCHLOROTHIAZIDE 25 MG TAB PO SCH (11:57)
[2023-10-04] MEDS ORDERED: POTASSIUM BICARBONATE/CIT AC 20 MEQ TABLET.EFF PO ONE (12:00)
[2023-10-04] MEDS: ATORVASTATIN 10 MG TAB PO SCH (20:57)
[2023-10-05] VITALS (8 sets, daily range): BP systolic 136–172; BP diastolic 74–89; PULSE 59–79; RESP 18–20; TEMP 97.8–98.9; O2SAT 97–100
[2023-10-05] MEDS: LEVOTHYROXINE SODIUM 112 MCG TAB PO SCH (06:11)
[2023-10-05 06:39] LABS: ANION GAP 12.8 mmol/L (8-16); CALCIUM 9.3 mg/dL (8.4-10.2); CREATININE, SERUM 1.77 mg/dL (0.57-1.11); POTASSIUM 3.8 mmol/L (3.5-5.1)
[2023-10-05] MEDS ORDERED: METOPROLOL TARTRATE 25 MG TAB PO SCH (09:00)
[2023-10-05] MEDS ORDERED: HYDRALAZINE HCL 25 MG TAB PO SCH (09:00)
[2023-10-05] MEDS: HYDROCHLOROTHIAZIDE 25 MG TAB PO SCH (09:38)
[2023-10-05] MEDS: HEPARIN SOD (PORCINE) 5,000 UNIT/ML VIAL SC SCH (09:40)
[2023-10-05] MEDS ORDERED: COREG12.5 MG PO (10:25)
[2023-10-05] MEDS ORDERED: HYDRALAZINE HCL50 MG PO (10:25)
[2023-10-05] MEDS ORDERED: ONDANSETRON HCL 4 MG ORAL DISINTEGRATING TAB PO PRN (14:15)
== END 2023-10-05 14:15 | disposition home or self-care (01) | DRG 178 ==
LOC: ER 22:38 → ERHOLD 10-03 00:37 → MED/SURG2 10-03 01:50
PROVIDERS: ADMIT Internal Medicine; ATTEND Internal Medicine
DX: U07.1 COVID-19 (principal); I13.0 Hypertensive heart and chronic kidney disease with heart failure and stage 1 through stage 4 chronic kidney disease, or unspecified chronic kidney disease; Z68.41 Body mass index [BMI] 40.0-44.9, adult; I50.9 Heart failure, unspecified; W06.XXXA Fall from bed, initial encounter; R53.1 Weakness; E03.9 Hypothyroidism, unspecified; G47.30 Sleep apnea, unspecified; M17.11 Unilateral primary osteoarthritis, right knee; E87.6 Hypokalemia; I16.0 Hypertensive urgency; E78.00 Pure hypercholesterolemia, unspecified; N18.30 Chronic kidney disease, stage 3 unspecified; R53.81 Other malaise; M19.90 Unspecified osteoarthritis, unspecified site; E66.01 Morbid (severe) obesity due to excess calories; Z86.711 Personal history of pulmonary embolism; Z86.718 Personal history of other venous thrombosis and embolism; Z79.890 Hormone replacement therapy; Z79.82 Long term (current) use of aspirin; Z91.041 Radiographic dye allergy status; Y92.003 Bedroom of unspecified non-institutional (private) residence as the place of occurrence of the external cause
CPT/HCPCS: 36415; 51700; 70450; 71045; 72125; 80048; 80053; 81001; 82550; 83880; 84443; 84484; 85025; 93005; 94660; 94799; 99285; J1644; J7030; U0002